=== PATIENT | female | born 1955 | race Caucasian/White ===

== ENCOUNTER → 2019-11-14 10:39 | Outpatient (BNVA) | payer BC, SELFPAY | PROVIDERS: Family Provider Family Medicine; PCP Family Medicine; Referring Provider Family Medicine; Visit Provider Specialist | DX: M25.551 Pain in right hip (principal); M16.11 Unilateral primary osteoarthritis, right hip | CPT/HCPCS: 73502 ==

== ENCOUNTER → 2020-03-10 16:09 | Outpatient (BNVA) | payer MEDICARE, SELFPAY | PROVIDERS: Family Provider Family Medicine; PCP Family Medicine; Visit Provider Specialist | DX: M17.11 Unilateral primary osteoarthritis, right knee (principal) | CPT/HCPCS: 73560; 73565 ==

== ENCOUNTER 2020-05-14 12:22 | Outpatient (CLI) | payer MEDICARE, SELFPAY ==
[2020-05-14 13:22] LABS: Blood Urea Nitrogen 13 mg/dL (8-23); Calcium 8.7 mg/dL (8.5-10.5); Carbon Dioxide 26 mmol/L (22-29); Chloride 101 mmol/L (98-107); Glomerular Filtration Rate 100.3 mL/min (90-130); Glucose 111 mg/dL (65-115); Osmolality Calculated 291 mOsm/kg (285-295); Sodium 140 mmol/L (136-145)
[2020-05-14 14:42] LABS: Anion Gap 16.7 (5-19); Potassium 3.7 mmol/L (3.5-5.1)
== END 2020-05-14 12:23 | disposition home or self-care (01) ==
PROVIDERS: PCP Family Medicine; Visit Provider Internal Medicine Cardiovascular Disease
DX: I10 Essential (primary) hypertension (principal); R06.02 Shortness of breath
CPT/HCPCS: 36415; 80048

== ENCOUNTER 2020-05-26 09:33 | Outpatient (CLI) | payer MEDICARE, SELFPAY ==
[2020-05-26 09:44] VITALS: BMI 32.5
--- NOTE | 2020-05-26 09:46 | ECG_ITS ---
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 Interpretive Statements NAME OF STUDY: LEXISCAN SESTAMIBI STRESS TEST INDICATION: Chest Pain PROCEDURE: At the baseline, the EKG revealed normal sinus rhythm with a poor R wave progression. Possible old septal WI. Nonspecific IVCD. The baseline blood pressure was 164/76 mm Hg with a heart rate of 73 beats/min. Lexiscan was infused over a period of 20 seconds. A total of 0.4 milligrams of Lexiscan was infused. The stress phase was continued for a total of 5 minutes. Heart rate at the end of the stress phase was 94 with a blood pressure was not obtained. The EKG at the peak infusion revealed no significant changes. Sestamibi was injected 20 seconds after the Lexiscan infusion. Blood pressure at the end of the recovery phase was not obtained with a heart rate of 97 per minute. CONCLUSION: 1. No significant EKG changes with the LexiScan infusion 2. No LexiScan induced chest pain or cardiac arrhythmia 3. Normal blood pressure and heart rate response 4. Sestamibi/sestamibi perfusion scan pending; see separate report. Electronically Signed On 05-27-2020 20:46:25 [employer] SUPERVISOR by Jesse Garcia M.D. [email or web address]
--- NOTE | 2020-05-26 09:46 | NMCV_ITS ---
NM rob perf SPECT r/s* [id number] Dorina Roberts Age: 65 Gender: F : 1955 Exam Date: 05/26/2020 09:46 Ordering Phys: Jesse Garcia MD ([email or web address]) Technologist: KAPIL Walls Exam Location: [facility] Indications: CHEST PAIN STRESS TEST Please see separate stress test report in [facility] for full findings IMAGE PROTOCOL Rest/Stress 1 Lexiscan Day Radiopharmaceutical Dose (mCi) Administration Site Administered by Rest: Tc-99m 10.7 IV KAPIL Walls Sestamibi Stress:Tc-99m 32.7 IV KAPIL Gonzalez Sestamibi Rest: 26-May-2020 60 Discovery 630 Stress: 26-May-2020 30 Discovery 630 0.4mg Lexiscan. Supine position only as patient was unable to lay prone. SPECT RESULTS Technical Quality: Excellent Raw Data Analysis: Normal Image Corrections: No attenuation or motion correction applied Summed Stress Score: 0 Summed Rest Score: 1 Summed Difference Score: 0 PERFUSION FINDINGS Small area of decreased uptake in the anteroseptal and apical septal regions. No significant reversibility was noted in these regions. FUNCTIONAL RESULTS (calculated via Gated SPECT) Stress Image LV EF (%): 80 Stress EDV (mL):64 TID: 0.88 Stress ESV (mL):13 FUNCTIONAL FINDINGS: Segmental wall motion analysis revealing no gross wall motion abnormalities IMPRESSIONS 1. Myocardial perfusion imaging revealing a small area of persistent decreased tracer uptake in the anteroseptal and apical septal regions, suggestive of myocardial scarring versus attenuation artifact. 2. Normal LV ejection fraction of 80%. 3. LV wall motion analysis revealing no gross wall motion normalities. 4. Normal LV volume. No significant coronary ischemia, based on the above findings Dr Jesse Garcia MD FACC (Electronically Signed) Final Date: 26 May 2020 15:18 S
[2020-05-26 11:48] VITALS: BP 164/76; PULSE 94
[2020-05-26] MEDS: regadenoson 0.4 Mg/5 ml Syringe IVP (11:48)
== END 2020-05-26 09:34 | disposition home or self-care (01) ==
LOC: CDL 09:35
PROVIDERS: PCP Family Medicine; Visit Provider Internal Medicine Cardiovascular Disease
DX: R07.89 Other chest pain (principal); R94.31 Abnormal electrocardiogram [ECG] [EKG]
CPT/HCPCS: 78452; 93017; A9500; J2785

== ENCOUNTER 2020-07-01 10:02 | Observation (INO) | payer MEDICARE, SELFPAY ==
--- NOTE | 2020-06-24 12:02 | P.ANESASSM_ITS ---
Pre-Anesthetic Assessment Pre-Anesthetic Assessment: Height/Weight: Height 1.63 m Preop Diagnosis: Primary osteoarthritis right knee Proposed Procedure: Operation Date: 07/01/20 07:00 Proposed Procedures p Right Total Knee Arthroplasty 10728 m17.11(Right) - Nini Subramanian MD Familial anesthetic complications: 1993 - difficulty breathing after hernia surgery did fine on a surgery in may Social: Social History: No alcohol and No tobacco Exam: Pre-Anes Outpt Exam: alert, oriented x 3, clear to auscultation bilaterally and regular rate & rhythm Airway: Cervical ROM: WNL MP: 3 Dentition: Chipped (in front) and False (in front) CV/HEM: CV/HEM: HTN Comments: mitral valve prolapse, Stress test 2020 - negative ischemia EF 80% Metabolic: Metabolic: Hyperlipidemia and Thyroid Comments: hypokalemia on potasssium Musc/skel: Comments: R hip needs replacement Anesthetic Plan: ASA status: 3 Anesthesia: Regional (specify below) Other: spinal Risk of > 500 ml blood loss (7ml/kg in children): No PFSH Anesthesia PFSH: Medical History Aftercare following surgery of the genitourinary system The patient status post posterior colporrhaphy 6 weeks ago. Denies any complication. She was counseled regarding no heavy lifting, the use of stool softeners, and diet Chest pain Heart murmur Hypertension Hypokalemia Hypothyroid Hypothyroid MVP (mitral valve prolapse) Patient denies medical problems Denies history of:(diabetes, heart, lung, liver, kidney, bleeding problems, clotting problems, or genital herpes) Pelvic floor weakness 62-year-old female , referring that she has to push up vaginal bulge when she goes to the bathroom to have a bowel movement. Patient was counseled regarding physical findings suggestive of stage II rectocele, possible etiologies. She was counseled regarding treatment modalities, medical/conservative expectant management and surgical management. The patient elected to try expectant management first, she was counseled regarding weight loss, Kegel exercise and pelvic floor physical therapy. Patient refers she still having issues and having to push back the vagina every time she goes to the bathroom and she now elected to have surgery. Counseled regarding surgical management. A TVH and BSO with posterior colporrhaphy, sacrospinous ligament suspension had been recommended. However she refers her boilermaker mechanic only cleared her for the posterior colporrhaphy. The patient was informed of the risks and benefits of an posterior colporrhaphy. Risks included but were not limited to bleeding, infection, and injury to the vagina, bladder, or urethra, and incomplete resolution of symptoms. The patient expressed understanding of the risks involved, all ques tions were answered, and the patient consented to the procedure and signed informed consent. Peripheral edema Rectocele Surgical History History of hernia repair 1993- Performed at [facility] in [place], [place]. History of tonsillectomy History of vaginal surgery Posterior colporrhaphy 06/06/2019- per Dr. Tomlin at [facility] Family History Father Hypertension Diabetes Heart disease Stroke Hyperlipidemia Sister Hypertension Mother Heart disease Breast cancer Family/Other Thyroid condition Heart disease Paternal Aunt Patient denies medical problems Denies family history of: (diabetes, heart, lung, liver, kidney, bleeding problems, clotting problems, or genital herpes) Social History Smoking and tobacco status: never smoked Alcohol intake: never Additional social history: well balanced diet Data Anesthesia Cardiac Studies: No Data to Display
[2020-06-24 12:13] VITALS: BMI 30.9
[2020-06-24 13:07] LABS: Bilirubin Urine Neg (Negative); Blood Urine Neg (Negative); Glucose Urine UA Norm (Normal); Ketones Urine Negative (Negative); Nitrate Urine Negative (Negative); Protein Urine Neg (Negative); Urine Appearance Clear (CLEAR); Urine Color Yellow (Yellow); pH Urine 6.5 (5-7)
[2020-06-24 13:08] LABS: Add Urine Culture? No; Bacteria Urine 1+ /hpf; Leukocyte Esterase Urine Negative (Negative); Mucus Urine 1+ /hpf; RBC Urine 0-4 /hpf (0-2); Urobilinogen Urine 4 mg/dL (Negative); WBC Urine 0-4 /hpf (0-5)
[2020-06-24 13:11] LABS: Basophils # 0.1 10^3/uL (0.0-0.1); Basophils % 0.6 %; Eosinophils # 0.2 10^3/uL (0.0-0.8); Eosinophils % 2.4 %; Hematocrit 38.4 % (37.0-47.0); Hemoglobin 11.6 g/dL (11.5-15.3); Lymphocytes # 1.3 10^3/uL (0.8-4.8); Lymphocytes % 15.8 %; Mean Corpuscular HGB Conc 30.2 g/dL (30.0-36.0); Mean Corpuscular Hemoglobin 26.3 pg (28.0-34.0); Mean Corpuscular Volume 87.1 fL (81-99); Mean Platelet Volume 10.1 fL (7.4-10.4); Monocytes # 0.6 10^3/uL (0.2-0.9); Monocytes % 7.3 %; Neutrophils # 6.15 10^3/uL (1.8-7.7); Neutrophils % 73.7 %; Nucleated Red Blood Cells % 0 %; Platelet Count 358 10^3/cmm (130-400); Red Blood Count 4.41 10^6/uL (4.1-5.3); Red Cell Distribution Width 16.9 % (12.1-15.1); White Blood Count 8.4 10^3/uL (4.0-10.0)
[2020-06-24 13:36] LABS: Alanine Aminotransferase 17 U/L (0-33); Albumin Level 3.6 g/dL (3.5-5.2); Alkaline Phosphatase 122 IU/L (35-105); Anion Gap 18.4 (5-19); Aspartate Amino Transferase 15 U/L (0-32); Blood Urea Nitrogen 9 mg/dL (8-23); Calcium 8.8 mg/dL (8.5-10.5); Carbon Dioxide 26 mmol/L (22-29); Chloride 100 mmol/L (98-107); Globulin 3.8 g/dL (1.3-4.6); Glomerular Filtration Rate 100.3 mL/min (90-130); Glucose 103 mg/dL (65-115); Osmolality Calculated 291 mOsm/kg (285-295); Potassium 3.4 mmol/L (3.5-5.1); Sodium 141 mmol/L (136-145); Total Bilirubin 0.5 mg/dL (0.15-1.2); Total Protein 7.4 g/dL (6.6-8.7)
[2020-07-01] VITALS (19 sets, daily range): BP systolic 87–150; BP diastolic 51–90; PULSE 52–82; RESP 14–18; TEMP 36.2–36.7; O2SAT 91–100
[2020-07-01] MEDS: CELEcoxib 200 mg Capsule 400 MG PO (06:16)
[2020-07-01] MEDS: sodium chloride 0.9% 1,000 ML 30 ML IV (06:17)
--- NOTE | 2020-07-01 07:00 | W.PM.OPSUD ---
Surgery/Procedure H&P Update DATE OF PROCEDURE: July 01, 2020 DATE H&P PERFORMED: 06/18/20 H&P UPDATE INFORMATION: I have reviewed H&P completed within last 30 days and No changes to prior documentation PREOP DIAGNOSIS: Primary osteoarthritis right knee PLANNED PROCEDURE: Operation Date: 07/01/20 07:00 Proposed Procedures p Right Total Knee Arthroplasty 73540 m17.11(Right) - Nini Subramanian MD Related Problem List Diagnoses (1) Primary osteoarthritis of right knee:
--- NOTE | 2020-07-01 07:57 | P.ANESUD_ITS ---
Pre-Anesthetic Update Pre-Anesthetic Assessment: Date of Surgery/Procedure: 07/01/20 Preop Blossom gnosis: Primary osteoarthritis right knee Proposed Procedure: Operation Date: 07/01/20 07:00 Proposed Procedures p Right Total Knee Arthroplasty 94163 m17.11(Right) - Nini Subramanian MD Any changes to Pre-Anesthetic Assessment?: No Last Intake: Intake Last Liquid Date 06/30/20 Last Liquid Time 21:00 Last Solid Date 06/30/20 Last Solid Time 21:00 Vitals: Temperature 98.0 F 07/01/20 05:46 Temperature Source Temporal Artery S can 07/01/20 05:46 Pulse Rate 80 07/01/20 05:46 Pulse Rhythm 07/01/20 05:46 Pulse Strength 3+ Normal 07/01/20 05:46 Respiratory Rate 18 07/01/20 05:46 Blood Pressure 150/90 07/01/20 05:46 Blood Pressure Micaela n 110 07/01/20 05:46 Pulse Oximetry 98 07/01/20 05:46 Oxygen Delivery Me thod 07/01/20 05:46 Exam: Pre-Anes Outpt Exam: alert, oriented x 3, clear to auscultation bilaterally and regular rate & rhythm Cardiac Studies: No Data to Display
--- NOTE | 2020-07-01 07:58 | ANES.PROC ---
Anesthesia Procedures Procedure/Date: 07/01/20 Nerve Block ^: Nerve Block 1: Main Anesthesia: spinal anesthesia block Time Out Performed: Yes Consent: requested by attending/covering physician, risks and benefits reviewed and patient agrees to proceed Anesthesia monitors applied: pulse oximetry, EKG, BP cuff and oxygen Nerve block position: supine Anesthetic Used: ropivicaine 0.5% Amount of anesthesia used (mL): 20 Ultrasound used to: recognize landmarks Nerve Stimulator Used?: No Interscalene/Femoral BLK: 4 stimuplex 21 g needle used for position and inplane approach Injection: neg aspiration of heme Patient Tolerated Procedure: well and no complications Complications: none
[2020-07-01] MEDS: vancomycin 1,000 MG SDV 1000 MG XX (08:20)
[2020-07-01] MEDS: ceFAZolin 1,000 mg SDV 1000 MG IRRIGATION ×2 (08:21)
[2020-07-01] MEDS: vancomycin 1,000 MG in sodium chloride 0.9% 250 ML 250 MG IV (08:31)
--- NOTE | 2020-07-01 10:15 | SUR.PHASEI ---
1015 PALPATED R. PEDAL PULSE, STRONG. CAP REFILL <3 SEC
--- NOTE | 2020-07-01 10:36 | XR_ITS ---
WS: [id number] XR knee RT 1-2V [id number] REASON FOR EXAM: Status post right total knee arthroplasty FINDINGS: There is been total right knee arthroplasty. Prosthetic components are properly positioned and aligne d. No bony abnormality. Soft tissue changes compatible with surgery. XR/XR knee RT 1-2V [id number] IMPRESSION: Total right knee arthroplasty without abnormality.
--- NOTE | 2020-07-01 10:37 | PM.OP ---
Operative Report Date of procedure: July 01, 2020 Pre-op Diagnosis: Primary osteoarthritis right knee Post-op diagnosis: same Post-op Findings: Severe degenerative osteoarthritis right knee Procedure Done: Right total knee arthroplasty Implants: The Haddock total knee system with a size 3 triathlon beaded posterior stabilized femur right, a triathlon titanium tibial component size 2 beaded, a triathlon X3 posterior stabilized tibial bearing insert size 2 x 11 mm and a beaded triathlon titanium asymmetric patella size 29 x 9 mm Pathology: none sent Pathology: Bone, disposed of Surgeon: Nini Subramanian Branch Employment Coordinator: [employer] Anesthesia: Other (Spinal with supplemental regional adductor block, ASA 3) Estimated blood loss (mL): 50 Tourniquet time (min): 119 Tourniquet time: At 250 mmHg IV fluids (mL): 1,500 Urine output (mL): 250 Complications: None Findings: Severe degenerative osteoarthritis with flexion contracture and very thin patella Condition: stable Disposition: PACU (Then to floor under observation status) Brief History: This 65-year-old woman presented with complaints of severe right knee pain. She was unable to perform activities of daily living comfortably. She was unresponsive to conservative measures and wished to proceed with total knee arthroplasty. Risks and complications were discussed with her. Consents were signed preoperatively and questions were answered. The patient wished to proceed understanding the above. Procedure: The patient was brought to the operating theater, and after undergoing adequate spinal anesthesia with supplemental regional block, ASA 3, the right lower extremity was prepped with Dura-Prep and draped in usual fashion following placement of a tourniquet high on the leg. The leg was then draped free. Following prepping and draping, the leg was exsanguinated, and the tourniquet was elevated to 250 mmHg for a total tourniquet time of 119 minutes. Prior to elevation of the tourniquet, but following exposure of the site of surgery, a surgical pause was performed. At the time of the surgical pause, we confirmed the site and side of surgery. Additionally, we confirmed the appropriate and timely administration of preoperative antibiotics, Ancef 2 g and subsequently vancomycin 1 g, as well as transexemic acid 1 g. The availability of equipment was confirmed, and the patient's identity was verbalized as well. Following the surgical pause, an incision was made centering over the patella continuing proximally and distally as necessary to allow access to the knee joint. Dissection continued through skin and soft tissues using a scalpel. Hemostasis was obtained using electrocautery. The skin incision was followed by a median parapatellar arthrotomy. The leg was extended and the patella was everted. Following this, the leg was returned to flexed position. The distal femur was exposed and a drill hole was made in this for placement of the distal femoral jig. The distal femoral jig was set at 5? of valgus. The distal femoral cutting block was then placed in appropriate position, and an mame wing was used to confirm an appropriate amount of distal femur would be resected. The distal femoral resection was accomplished with 10 mm of bone being resected distally secondary to the flexion contracture. After the distal femoral resection had been accomplished, the femur was measured and it measured a size 3. Medial lateral dimension also measured a size 3. A size 3 femoral cutting block was placed in position, and we were then able to accomplish the anterior, posterior and chamfer cuts. This jig was then removed and the notch guide was placed in position. With the notch guide in appropriate position, the notch was excised including resection of the anterior and posterior cruciate ligaments. This notch was to allow for the posterior stabilized femoral component. At this point, the femur was prepared and attention was directed to the proximal tibia. The posterior knee retractor was placed along with medial and lateral retractors. Further resection of the menisci was accomplished as we had better visualization. A complete meniscectomy was performed both medially and laterally with care being taken to protect the popliteus. Retractors were then placed so that the proximal tibia was well visualized. A drill hole was then made in the tibia for placement of the intramedullary guide. This guide was placed so that approximately 2 mm of bone would be resected from the deficient medial tibial plateau. The intramedullary guide was utilized supplemented with an extramedullary guide to assure appropriate alignment for the proximal tibial resection. The proximal tibial jig was then evaluated, pinned in position, and the proximal tibial resection was accomplished without difficulty. The jig was removed and the proximal tibia was measured. It measured a size 2. We then attempted a trial reduction with a size 2 by 9 mm insert. The femoral component was placed in position for the trial reduction, and the knee was placed through range of motion. There was very minimal imbalance between the medial and lateral side, but I did perform a medial release and increased to a size 11 mm insert. There was excellent stability with excellent varus-valgus alignment with appropriate patellar tracking. Extension was noted to be full as well. This was felt to be the appropriate size insert. There was full extension and flexion without lift off and the rotation of the tibia was marked. Alignment was checked from the hip to the ankle, and this was noted to be appropriate as well. Attention was then directed to the patella. The patella was measured with a caliper. It was noted to be quite thin with some areas measuring 13 mm. We resected sufficient patella to leave approximately 12-14 mm of patella remaining. Measurements of the patella then indicated that a size asymmetric 29 mm x 9 mm was the appropriate patellar size. We then placed the jig to drill for the 3 pegs of the press-fit patella, and these drill holes were made without incident. A trial patella was then placed, and the knee was placed through range of motion. The patella was noted to track nicely without evidence of subluxation. The femur was prepared for a press-fit femur by drilling 2 holes for the femoral pegs. All trial components were subsequently removed. The tibial tray was then pinned into position, and we broached the tibia for the stem of the tibial component. Subsequently, 4 drill holes were made for placement of the press-fit tibia. This was accomplished without difficulty. Care was taken to assure appropriate rotation of the tibia as well as appropriate position on the proximal tibia. The tibial tray was completely seated on the proximal tibia. Following broaching, the tibial guide was removed, and all surfaces were copiously irrigated. The surfaces were then dried and a bone plug was placed into the distal femur. Exparel was also injected at this point. The Tritanium tibia was impacted into position. The beaded femur was then impacted into position in a cementless fashion. The tibial insert was placed. The patella was pressed into position with a patellar clamp. The knee was irrigated with 20 mL of Betadine and 500 mL of normal saline, and this was allowed to remain in the knee for 3-4 minutes. The knee was then copiously irrigated and suctioned dry. Attention was then directed to closure. Closure was accomplished with 0 Vicryl in the fascial tissues, 2-0 Monocryl was used in the subcutaneous tissues, and the skin was closed with skin varsha and Exofin. A sterile dressing was then placed consisting of Telfa, 4 x 4's, ABDs, sterile soft roll, and an Pasquale wrap. The patient was returned the Recovery Room in a satisfactory condition. X-rays were obtained there. The patient will be discharged to the floor for postoperative rehabilitation and pain management. She'll be under observation status with plans to discharge home with home health. Associated Problem List Diagnoses (1) Primary osteoarthritis of right knee:
--- NOTE | 2020-07-01 10:39 | ANE.PACU2 ---
Inpatient post-anesthesia follow up: Airway intact: Yes Vital signs: Temperature 97.2 F Pulse Rate 56 Respiratory Rate 17 Blood Pressure 110/57 Pulse Oximetry 96 Oxygen Delivery Me thod Room Air Oxygen Flow Rate 8 Fraction of Inspir ed Oxygen Hydration adequate: Yes Nausea and vomiting: No Pain level: 1 Mental status: Baseline
[2020-07-01] MEDS: chlorhexidine gluconate 0.12% Btl 473 mL 30 ML MUCOUS MEM ×3 (13:03→21:18)
[2020-07-01] MEDS: venlafaxine ER (24HR) 37.5 mg Capsule PO (16:57)
[2020-07-01] MEDS: calcium carbonate 500 mg Chew Tablet 1000 MG PO (16:57)
[2020-07-01] MEDS: sennosides-docusate Tablet 2 TAB PO (16:58)
[2020-07-01] MEDS: gabapentin 300 mg Capsule PO (16:58)
[2020-07-01] MEDS: CELEcoxib 200 mg Capsule PO (16:58)
--- NOTE | 2020-07-01 17:58 | PC.NURSE ---
SHIFT SUMMARY PATIENT HAS DONE WELL SINCE ARRIVING TO THE FLOOR. PATIENT HAS NO COMPLAINTS OF PAIN AT THIS TIME. SURGICAL DRESSING C/D/I. PATIENT DID WELL WITH THERAPY. GOOD URINE OUTPUT. VITALS STABLE. NO COMPLAINTS AT THIS TIME.
[2020-07-02] VITALS (7 sets, daily range): BP systolic 108–140; BP diastolic 64–82; PULSE 66–78; RESP 16–18; TEMP 36.5–36.7; O2SAT 93–96
[2020-07-02 02:35] LABS: Basophils % 0.3 %; Eosinophils # 0.2 10^3/uL (0.0-0.8); Eosinophils % 2.8 %; Hematocrit 32.4 % (37.0-47.0); Lymphocytes % 13.7 %; Mean Corpuscular HGB Conc 30.9 g/dL (30.0-36.0); Mean Corpuscular Hemoglobin 26.4 pg (28.0-34.0); Mean Corpuscular Volume 85.5 fL (81-99); Mean Platelet Volume 10.2 fL (7.4-10.4); Monocytes # 0.6 10^3/uL (0.2-0.9); Monocytes % 8.3 %; Neutrophils # 5.43 10^3/uL (1.8-7.7); Neutrophils % 74.8 %; Nucleated Red Blood Cells % 0 %; Platelet Count 243 10^3/cmm (130-400); Red Blood Count 3.79 10^6/uL (4.1-5.3); White Blood Count 7.3 10^3/uL (4.0-10.0)
[2020-07-02 02:54] LABS: Anion Gap 10.1 (5-19); Blood Urea Nitrogen 14 mg/dL (8-23); Carbon Dioxide 26 mmol/L (22-29); Chloride 105 mmol/L (98-107); Glomerular Filtration Rate 100.3 mL/min (90-130); Glucose 125 mg/dL (65-115); Osmolality Calculated 288 mOsm/kg (285-295); Potassium 3.1 mmol/L (3.5-5.1); Sodium 138 mmol/L (136-145)
[2020-07-02] MEDS: CELEcoxib 200 mg Capsule PO (05:41)
[2020-07-02] MEDS: calcium carbonate 500 mg Chew Tablet 1000 MG PO (09:03)
[2020-07-02] MEDS: atorvastatin 40 mg Tablet 20 MG PO (09:03)
[2020-07-02] MEDS: venlafaxine ER (24HR) 37.5 mg Capsule PO (09:04)
[2020-07-02] MEDS: gabapentin 300 mg Capsule PO (09:04)
[2020-07-02] MEDS: losartan 50 mg Tablet PO (09:04)
[2020-07-02] MEDS: hydroCHLOROthiazide 25 mg Tablet PO (09:04)
[2020-07-02] MEDS: cholecalciferol (vitamin D3) 1,000 unit Tablet 1000 UNIT PO (09:04)
[2020-07-02] MEDS: iron polysaccharide complex 150 mg Capsule PO (09:04)
[2020-07-02] MEDS: mupirocin oint 22 gm 1 APPLIC NASAL (09:05)
[2020-07-02] MEDS: multivitamin therapeutic Tablet 1 TAB PO (09:05)
[2020-07-02] MEDS: sennosides-docusate Tablet 2 TAB PO (09:05)
[2020-07-02] MEDS: levothyroxine 50 mcg Tablet PO (09:05)
[2020-07-02] MEDS: potassium chloride ER 20 mEq Tablet PO (09:06)
[2020-07-02] MEDS: aspirin 325 mg EC Tablet PO (09:06)
[2020-07-02] MEDS: oxyCODONE 5 mg IR Tab/Cap PO (09:14)
[2020-07-02] MEDS: chlorhexidine gluconate 0.12% Btl 473 mL 30 ML MUCOUS MEM (09:18)
[2020-07-02] MEDS: vancomycin 1,000 MG in sodium chloride 0.9% 250 ML 250 MG IV (09:18)
--- NOTE | 2020-07-02 13:12 | PC.SOCIAL ---
PA approved on Celecoxib. Updated provider Dr Subramanian and Tiffany in pharmacy.
--- NOTE | 2020-07-02 17:21 | P.DS_ITS ---
Discharge Providers Date of Admission: 07/01/20 10:02 Date of Discharge: July 02, 2020 Attending Provider at Admission: Nini Subramanian MD Attending Provider at Discharge: Nini Subramanian MD Primary Care Provider: Paul Monk Diagnoses at Discharge Discharge Diagnosis (1) Primary osteoarthritis of right knee: Status: Acute Reason for Visit Reason for Visit: r total knee arthroplasty Brief History: This 65-year-old woman presented with complaints of severe right knee pain. She was unable to perform activities of daily living comfortably. She was unresponsive to conservative measures and wished to proceed with total knee arthroplasty. Risks and complications were discussed with her. Consents were signed preoperatively and questions were answered. The patient wished to proceed understanding the above. Hospital Course Hospital Course This 65-year-old woman underwent the above procedure in the form of a right total knee arthroplasty on the day prior to her discharge. She was brought into the hospital under observation status and monitored overnight for medical issues and for pain management. On the first postoperative day, she worked with physical therapy. She was actually up to the chair, however, the evening following her surgery. She was stable and doing well. Dressings were changed, the wound was benign, and there was no evidence of complication. Her calf was soft and nontender. Physical therapy felt that she was safe to go home. Therefore, she was scheduled for discharge and to follow-up with me in the office. Physical Exam Const: COMMON NORMALS: no acute distress, average body habitus, patient oriented x3 and alert GENERAL APPEARANCE: cooperative and comfortable ORIENTATION/CONSCIOUSNESS: Yes awake HENMT: COMMON NORMALS: normocephalic and atraumatic HEAD & SCALP: normocephalic and atraumatic Eye: GENERAL EYE: appearance normal, both eyes and all related structures Chest: COMMONS NORMALS: normal inspection of the chest Resp: COMMON NORMALS: normal respiratory effort EFFORT & INSPECTION: Yes able to speak in complete sentences and Yes symmetric chest movement Extremity: RIGHT LOWER EXTREMITY: Yes knee joint (Dressings are removed. The patient is tolerating her CPM.) Right knee: Yes inspection (There is no evidence of drainage or infection.), Yes palpation (There is no tenderness to palpation.) and Yes neurovascular exam (Intact distal to the surgical site.) Neuro: COMMON NORMALS: patient oriented x3 SENSORIUM/ORIENTATION: Yes alert Psych: COMMON NORMALS: mental status grossly normal APPEARANCE: Yes grossly normal ATTITUDE: Yes calm and Yes engaged ATTENTION/CONCENTRATION: Yes attention grossly intact Skin: COMMON NORMALS: no rashes or lesions noted GENERAL SKIN EXAM: no rashes or lesions noted Urinary Catheter Management^: F: Cath Placed During This Visit: yes, but has since been removed by the nurse Reason for Continuing Indwelling Catheter: Decision to DC Catheter Urinary Catheter Date of Insertion: 07/01/20 Urinary Catheter Time of Insertion: 07:30 Date Urinary Catheter Removed: 07/02/20 Time Urinary Catheter Discontinued: 04:00 Discharge Data Data Completed and Pending: Completed Studies During Hospitalization Category Date Time Status XR knee RT 1-2V 7 3560 Urgent Exams 07/01/20 10:36 Completed Labs from last 24 hours 07/02/20 07/02/20 02:15 02:15 WBC 7.3 RBC 3.79 L Hgb 10.0 L Hct 32.4 L MCV 85.5 MCH 26.4 L MCHC 30.9 RDW 17.0 H Plt Count 243 MPV 10.2 Neut % (Auto) 74.8 Lymph % (Auto) 13.7 Nelson % (Auto) 8.3 Eos % (Auto) 2.8 Baso % (Auto) 0.3 Neut # (Auto) 5.43 Lymph # (Auto) 1.0 Nelson # (Auto) 0.6 Eos # (Auto) 0.2 Baso # (Auto) 0.0 Nucleated RBC % (a uto) 0 Nucleated RBCs # 0.0 Sodium 138 Potassium 3.1 L Chloride 105 Carbon Dioxide 26 Anion Gap 10.1 BUN 14 Creatinine 0.6 GFR Calculation 100.3 Glucose 125 H Calculated Osmolal ity 288 Calcium 8.0 L Vitals: Last Vital Signs Temp 97.7 F 07/02/20 13:11 Pulse 78 07/02/20 13:11 Resp 18 07/02/20 13:11 BP 140/82 07/02/20 13:11 Pulse Ox 96 07/02/20 13:11 Discharge Plan Discharge Patient Disposition: Home Health Service Condition: Stable Prescriptions: New acetaminophen 500 mg Tablet 1,000 mg PO Q8H 15 Days Qty: 90 RF: 0 aspirin 325 mg Tablet,Delayed Release (Dr/Ec) 325 mg PO DAILY 30 Days Qty: 0 RF: 0 celecoxib 200 mg Capsule 200 mg PO Q12H Qty: 60 RF: 0 oxycodone 5 mg Tablet 5 mg PO Q4H PRN (Reason: Moderate Pain) Qty: 30 RF: 0 Continued gabapentin 300 mg capsule 300 mg PO BID RF: 0 losartan 50 mg tablet 50 mg PO DAILY 30 Days Qty: 30 RF: 5 lovastatin 40 mg tablet extended release 24 hr 40 mg PO DAILY RF: 0 levothyroxine 50 mcg capsule 50 mcg PO DAILY RF: 0 venlafaxine 37.5 mg capsule,extended release 24hr 37.5 mg PO BID RF: 0 garlic Tablet 1 mg PO DAILY RF: 0 potassium chloride 20 mEq tablet extended release 20 meq PO DAILY Qty: 30 RF: 3 ciprofloxacin HCl 500 mg tablet 500 mg PO BID Qty: 14 RF: 0 hydrochlorothiazide 25 mg tablet 25 mg PO DAILY RF: 0 Held aspirin 81 mg tablet,delayed release (DR/EC) 81 mg PO DAILY RF: 0 Hold Instructions: Resume on 07/29/20. You may resume this dose when you have completed 30 days at 325 mg/day. Discharge Orders: Discharge Order (Routine); Ordered 07/02/20 Ordered By: Nini Subramanian Other Ambulatory Orders: DME: Walker (Order) Timeframe: [id number] Location: None Selected Ordered By: Nini Subramanian Referrals: [facility] [Outside] Nini Subramanian MD [Physician] - 07/14/20 9:45 am Discharge Diet: Advance as tolerated and Usual diet Discharge Activity: Increase activity as tolerated, Limit activity as instructed, Use walker/crutches as instructed and As per PT/OT instructions Patient Instructions: Oxycodone, Rapid Release (By mouth), Celecoxib (By mouth), Total Knee Replacement (DC) Activity Restrictions/Additional Instructions: Elevate lower extremity above the level of your heart. Keep ice on your knee. You may weight-bear as tolerated and follow physical therapy instructions for gait training, ambulation, and range of motion as well as strengthening. Discharge Attestations Time Spent in Discharge Care*: greater than 30 min Specific Discharge Activities: educating patient, documenting/other paperwork and evaluating patient/reviewing data Quality Metrics Clinical Quality Measures During this hospital stay, did patient experience: None Coding Level of Care Code Acute Pants Presser for [facility] Fwd Diagnoses Primary osteoarthritis of right knee M17.11
== END 2020-07-02 13:12 | disposition home health service (06) ==
LOC: MEDSURG 10:02
PROVIDERS: Admitting Provider Specialist; PCP Family Medicine; Visit Provider Specialist
PROC: (CPT 27447; principal; 2020-07-01 07:00)
DX: M17.11 Unilateral primary osteoarthritis, right knee (principal); I10 Essential (primary) hypertension; E78.5 Hyperlipidemia, unspecified; E03.9 Hypothyroidism, unspecified; Z83.3 Family history of diabetes mellitus; Z82.49 Family history of ischemic heart disease and other diseases of the circulatory system; Z82.3 Family history of stroke
CPT/HCPCS: 27447; 12345; 36415; 51702; 73560; 80048; 80053; 81001; 85025; 87635; 96361; 96365; 97110; 97116; 97161; 97166; 97535; C1776; C9290; G0378; J0131; J0690; J1885; J2250; J2274; J2405; J2704; J2795; J3010; J3370; J3490; J7030; J7050

== ENCOUNTER 2020-07-02 20:27 | Emergency (ER) | payer MEDICARE, SELFPAY ==
[2020-07-02 20:39] VITALS: BP 105/73; PULSE 90; RESP 16; TEMP 36.5; O2SAT 97; BMI 32.2
--- NOTE | 2020-07-02 21:09 | XR_ITS ---
WS: [id number] XR knee RT 1-2V 00729 REASON FOR EXAM: injury, fall, 1 day post op total knee FINDINGS: Three-part total right knee arthroplasty. Prosthetic components in proper position and alignment, unc hanged to the immediate postoperative study. No bony abnormality. Soft tissue changes compatible with recent surgery. XR/XR knee RT 1-2V 50642 IMPRESSION: Total right knee arthroplasty with no significant abnormality.
[2020-07-02 22:10] VITALS: BP 150/82; PULSE 90; RESP 18; O2SAT 96
--- NOTE | 2020-07-02 22:16 | ED_ITS ---
HPI - Extremity Problem General: Chief complaint: Extremity Injury, Lower Stated complaint: Fall on r.knee/surgery 07/01/worried about damage Time Seen by Provider: 07/02/20 20:50 History of Present Illness: HPI Narrative: Patient is a well-appearing 65-year-old female seen for right knee contusion. She underwent total knee repair only yesterday, and states that she was walking at home with the help of her when she lost her footing and gently fell forward to her knees. Her was holding onto her, thus her knees struck the floor at a much slower rate than they would have otherwise. She complains of mild pain over her incision site at her patella as well as scant blood seen beneath her wound dressing. She has been able to walk since then. She denies increased pain with walking compared to prior to falling. She has no other acute complaints. Review of Systems General: Reports: 10 or more systems reviewed and unremarkable except in HPI and below PFSH ED PFSH: Medical History (Updated 07/02/20 @ 21:50 by Vijay Anglin MD) Aftercare following surgery of the genitourinary system The patient status post posterior colporrhaphy 6 weeks ago. Denies any complication. She was counseled regarding no heavy lifting, the use of stool softeners, and diet Chest pain Heart murmur Hypertension Hypokalemia Hypothyroid Hypothyroid MVP (mitral valve prolapse) Patient denies medical problems Denies history of:(diabetes, heart, lung, liver, kidney, bleeding problems, clotting problems, or genital herpes) Pelvic floor weakness 62-year-old female , referring that she has to push up vaginal bulge when she goes to the bathroom to have a bowel movement. Patient was counseled regarding physical findings suggestive of stage II rectocele, possible etiologies. She was counseled regarding treatment modalities, medical/conservative expectant management and surgical management. The patient elected to try expectant management first, she was counseled regarding weight loss, Kegel exercise and pelvic floor physical t herapy. Patient refers she still having issues and having to push back the vagina every time she goes to the bathroom and she now elected to have surgery. Counseled regarding surgical management. A TVH and BSO with posterior colporrhaphy, sacrospinous ligament suspension had been recommended. However she refers her direct of real estate only cleared her for the posterior colporrhaphy. The patient was informed of the risks and benefits of an posterior colporrhaphy. Risks included but were not limited to bleeding, infection, and injury to the vagina, bladder, or urethra, and incomplete resolution of symptoms. The patient expressed understanding of the risks involved, all questions were answered, and the patient consented to the procedure and signed informed consent. Peripheral edema Rectocele Surgical History (Updated 07/02/20 @ 11:29 by Nini Subramanian MD) History of hernia repair 1993- Performed at [facility] in [place], [place] History of tonsillectomy History of vaginal surgery Posterior colporrhaphy 06/06/2019- per Dr. Tomlin at [facility] Family History Father Hypertension Diabetes Heart disease Stroke Hyperlipidemia Sister Hypertension Mother Heart disease Breast cancer Family/Other Thyroid condition Heart disease Paternal Aunt Patient denies medical problems Denies family history of: (diabetes, heart, lung, liver, kidney, bleeding problems, clotting problems, or genital herpes) Social History Smoking and tobacco status: never smoked Alcohol intake: never Additional social history: well balanced diet Physical Exam Const: COMMON NORMALS: no acute distress, patient oriented x3 and alert HENMT: COMMON NORMALS: normocephalic and atraumatic HEAD & SCALP: normocephalic and atraumatic Eye: COMMON NORMALS: Equal, round and reactive pupils present, EOMs intact bilaterally and no scleral icterus PUPIL: Yes Equal, round and reactive pu pils present Resp: COMMON NORMALS: normal respiratory effort and No retractions Cardio: COMMON NORMALS: regular rate, regular rhythm and No murmurs present (Cardio) RATE: regular rate RHYTHM: regular rhythm GI: COMMON NORMALS: Normal to inspection, nondistended, normoactive bowel stephany nds present, Soft to palpation and non-tender PALPATION: Yes Soft to palpation Extremity: EXTREMITY IMAGE (FRONT): 1. Surgical incision is clean dry and intact. There is a scant amount of blood under the wound dressing, but no other sign of distress or trauma. Neuro: COMMON NORMALS: patient oriented x3 SENSORIUM/ORIENTATION: Yes alert Skin: COMMON NORMALS: no rashes or lesions noted GENERAL SKIN EXAM: no rashes or lesions noted Course Vital Signs: Vital signs: Vital Signs Temperature 97.7 F 07/02/20 20:39 Pulse Rate 90 07/02/20 22:10 Respiratory Rate 18 07/02/20 22:10 Blood Pressure 150/82 07/02/20 22:10 Pulse Oximetry 96 07/02/20 22:10 MDM - Extremity (Nontraumatic) MDM Narrative: Medical decision making narrative: Patient remained hemodynamically stable through ED course. X-ray showed no acute process. I suspect mild contusion to the knee. I do not suspect any trauma warranting further work-up or orthopedic consultation at this time. She is able to ambulate as she did before the fall. She will be discharged in stable condition with follow-up to orthopedics. Imaging Data^: Other Xray: My impression: Multiple views of the right knee show no evidence of periprosthetic fracture or dislocation. Discharge Plan Discharge Patient Disposition: Home Clinical Impression: Contusion of knee, right Condition: Stable Prescriptions: No Action gabapentin 300 mg capsule 300 mg PO BID@0700,1700 RF: 0 lovastatin 40 mg tablet extended release 24 hr 40 mg PO DAILY@1800 RF: 0 levothyroxine 50 mcg capsule 50 mcg PO DAILY@0500 RF: 0 venlafaxine 37.5 mg capsule,extended release 24hr 37.5 mg PO BID@0600,2100 RF: 0 garlic Tablet 1 mg PO DAILY@0700 RF: 0 aspirin 81 mg tablet,delayed release (DR/EC) 81 mg PO DAILY@0700 RF: 0 Hold Instructions: Resume on 07/29/20. You may resume this dose when you have completed 30 days at 325 mg/day. hydrochlorothiazide 25 mg tablet 25 mg PO DAILY@0700 RF: 0 celecoxib 200 mg Capsule 200 mg PO Q12H Qty: 60 RF: 0 oxycodone 5 mg Tablet 5 mg PO Q4H PRN (Reason: Moderate Pain) Qty: 30 RF: 0 losartan 50 mg tablet 50 mg PO DAILY@1800 RF: 0 acetaminophen 500 mg tablet 1,000 mg PO Q8H RF: 0 aspirin 325 mg tablet,delayed release (DR/EC) 325 mg PO DAILY@0700 RF: 0 potassium chloride 20 mEq tablet extended release 20 meq PO DAILY@0600 RF: 0 Discharge Orders: Discharge ED (Routine); Ordered 07/02/20 Ordered By: Vijay Anglin Referrals: Paul Monk [Primary Care Provider] - Nini Subramanian MD [Physician] - (Please follow-up with your orthopedic surgeon as previously scheduled) Discharge Activity: Increase activity as tolerated Activity Restrictions/Additional Instructions: The x-ray of your knee is reassuring. I do not see any evidence of migration of the prosthetic nor fracture of the bone surrounding it. The blood in your dressing is not worrisome and you should not attempt to get it out. Everything underneath the dressing is sterile, and it is best to leave it alone until you follow-up with your orthopedic surgeon. Coding Level of Care Code ED Fitting Room Operator for Chris Zarco
== END 2020-07-02 22:11 | disposition home or self-care (01) ==
PROVIDERS: Emergency Provider Student in an Organized Health Care Education/Training Program; PCP Family Medicine
DX: S80.01XA Contusion of right knee, initial encounter (principal); Z79.82 Long term (current) use of aspirin; I10 Essential (primary) hypertension; W19.XXXA Unspecified fall, initial encounter; Z96.659 Presence of unspecified artificial knee joint; E78.5 Hyperlipidemia, unspecified; E03.9 Hypothyroidism, unspecified; Z83.3 Family history of diabetes mellitus; Z82.49 Family history of ischemic heart disease and other diseases of the circulatory system; Z82.3 Family history of stroke
CPT/HCPCS: 12345; 36415; 73560; 80048; 85025; 97110; 97116; 97166; 97535; 99281; 99282; G0378; J0131; J3370; J7050

== ENCOUNTER → 2020-07-14 09:47 | Outpatient (BNVA) | payer MEDICARE, SELFPAY | PROVIDERS: PCP Family Medicine; Visit Provider Specialist | DX: Z47.1 Aftercare following joint replacement surgery (principal); Z96.651 Presence of right artificial knee joint | CPT/HCPCS: 73560; 73565 ==

== ENCOUNTER → 2020-08-04 13:12 | Outpatient (BNVA) | payer MEDICARE, SELFPAY | PROVIDERS: PCP Family Medicine; Visit Provider Specialist | DX: Z47.1 Aftercare following joint replacement surgery (principal); Z96.651 Presence of right artificial knee joint | CPT/HCPCS: 73560; 73565 ==

== ENCOUNTER 2020-08-13 09:16 | Outpatient (RCR) | payer MEDICARE, SELFPAY | END 2020-08-24 23:59 | disposition home or self-care (01) | LOC: SPT 09:16 | PROVIDERS: PCP Family Medicine; Referring Provider Orthopaedic Surgery; Visit Provider Orthopaedic Surgery | DX: Z47.1 Aftercare following joint replacement surgery (principal); Z96.651 Presence of right artificial knee joint | CPT/HCPCS: 97110; 97161 ==

== ENCOUNTER 2020-08-25 06:00 | Outpatient (RCR) | payer MEDICARE, SELFPAY | END 2020-09-21 23:59 | disposition home or self-care (01) | LOC: SPT 06:00 | PROVIDERS: PCP Family Medicine; Referring Provider Orthopaedic Surgery; Visit Provider Orthopaedic Surgery | DX: Z47.1 Aftercare following joint replacement surgery (principal); Z96.651 Presence of right artificial knee joint | CPT/HCPCS: 97110 ==

== ENCOUNTER 2020-09-22 06:00 | Outpatient (RCR) | payer MEDICARE, SELFPAY | END 2020-10-22 23:59 | disposition home or self-care (01) | LOC: SPT 06:00 | PROVIDERS: PCP Family Medicine; Referring Provider Orthopaedic Surgery; Visit Provider Orthopaedic Surgery | DX: Z47.1 Aftercare following joint replacement surgery (principal); Z96.651 Presence of right artificial knee joint | CPT/HCPCS: 97110; 97116 ==

== ENCOUNTER → 2020-09-24 11:46 | Outpatient (BNVA) | payer MEDICARE, SELFPAY | PROVIDERS: PCP Family Medicine; Visit Provider Specialist | DX: Z47.1 Aftercare following joint replacement surgery (principal); Z96.651 Presence of right artificial knee joint | CPT/HCPCS: 73560; 73565 ==

== ENCOUNTER → 2020-10-22 08:44 | Outpatient (BNVA) | payer MEDICARE, SELFPAY | PROVIDERS: PCP Family Medicine; Visit Provider Specialist | DX: Z96.651 Presence of right artificial knee joint (principal) | CPT/HCPCS: 73560; 73565 ==

== ENCOUNTER 2020-10-23 06:00 | Outpatient (RCR) | payer MEDICARE, SELFPAY | END 2020-11-21 23:59 | disposition home or self-care (01) | LOC: SPT 06:00 | PROVIDERS: PCP Family Medicine; Referring Provider Orthopaedic Surgery; Visit Provider Orthopaedic Surgery | DX: Z47.1 Aftercare following joint replacement surgery (principal); Z96.651 Presence of right artificial knee joint | CPT/HCPCS: 97110 ==

== ENCOUNTER 2020-11-22 06:00 | Outpatient (RCR) | payer MEDICARE, SELFPAY | END 2020-12-22 23:59 | disposition home or self-care (01) | LOC: SPT 06:00 | PROVIDERS: PCP Family Medicine; Referring Provider Orthopaedic Surgery; Visit Provider Orthopaedic Surgery | DX: Z47.1 Aftercare following joint replacement surgery (principal); Z96.651 Presence of right artificial knee joint | CPT/HCPCS: 97110; 97116 ==

== ENCOUNTER 2020-12-23 06:00 | Outpatient (RCR) | payer MEDICARE, SELFPAY | END 2021-01-21 23:59 | disposition home or self-care (01) | LOC: SPT 06:00 | PROVIDERS: PCP Family Medicine; Referring Provider Orthopaedic Surgery; Visit Provider Orthopaedic Surgery | DX: Z47.1 Aftercare following joint replacement surgery (principal); Z96.651 Presence of right artificial knee joint | CPT/HCPCS: 97110 ==

== ENCOUNTER → 2020-12-24 11:31 | Outpatient (BNVA) | payer MEDICARE, SELFPAY | PROVIDERS: PCP Family Medicine; Visit Provider Specialist | DX: Z96.651 Presence of right artificial knee joint (principal); Z48.89 Encounter for other specified surgical aftercare | CPT/HCPCS: 73560; 73565 ==

== ENCOUNTER → 2021-01-14 09:22 | Outpatient (BNVA) | payer MEDICARE, SELFPAY | PROVIDERS: PCP Family Medicine; Visit Provider Specialist | DX: Z01.812 Encounter for preprocedural laboratory examination (principal); Z20.822 Contact with and (suspected) exposure to COVID-19 | CPT/HCPCS: 87635 ==

== ENCOUNTER 2021-01-20 19:45 | Observation (INO) | payer MEDICARE, SELFPAY ==
[2021-01-14 11:44] VITALS: BMI 34.3
--- NOTE | 2021-01-14 12:20 | ANES.PREANE2 ---
Pre-Anesthetic Assessment Pre-Anesthetic Assessment: Height/Weight: Height 1.63 m Weight 90.718 kg Preop Diagnosis: Left knee degenerative osteoarthritis Proposed Procedure: Operation Date: 01/20/21 07:00 Proposed Procedures p Left Total Knee Arthroplasty 02974 M17.10(Left) - Nini Subramanian MD Familial anesthetic complications: 1993 - difficulty breathing after hernia surgery did fine on a surgery in may Social: Social History: No alcohol and No tobacco Exam: Pre-Anes Outpt Exam: alert, oriented x 3, clear to auscultation bilaterally and regular rate & rhythm Airway: Cervical ROM: WNL MP: 3 Dentition: Full CV/HEM: CV/HEM: Angina (Stable) and HTN Comments: mitral valve prolapse, Stress test 2020 - negative ischemia EF 80%1 Metabolic: Metabolic: Hyperlipidemia and Thyroid Anesthetic Plan: ASA status: 3 Anesthesia: Regional (specify below) (spinal and adductor) Risk of > 500 ml blood loss (7ml/kg in children): Yes, adequate IV access and fluids planned PFSH Anesthesia PFSH: Medical History Aftercare following surgery of the genitourinary system The patient status post posterior colporrhaphy 6 weeks ago. Denies any complication. She was counseled regarding no heavy lifting, the use of stool softeners, and diet Chest pain Heart murmur Hypertension Hypokalemia Hypothyroid Hypothyroid MVP (mitral valve prolapse) Patient denies medical problems Denies history of:(diabetes, heart, lung, liver, kidney, bleeding problems, clotting problems, or genital herpes) Pelvic floor weakness 62-year-old female , referring that she has to push up vaginal bulge when she goes to the bathroom to have a bowel movement. Patient was counseled regarding physical findings suggestive of stage II rectocele, possible etiologies. She was counseled regarding treatment modalities, medical/conservative expectant management and surgical management. The patient elected to try expectant management first, she was counseled regarding weight loss, Kegel exercise and pelvic floor physical therapy. Patient refers she still having issues and having to push back the vagina every time she goes to the bathroom and she now elected to have surgery. Counseled regarding surgical management. A TVH and BSO with posterior colporrhaphy, sacrospinous ligament suspension had been recommended. However she refers her woodenware assembler only cleared her for the posterior colporrhaphy. The patient was informed of the risks and benefits of an posterior colporrhaphy. Risks included but were not limited to bleeding, infection, and injury to the vagina, bladder, or urethra, and incomplete resolution of symptoms. The patient expressed understanding of the risks involved, all questions were answered, and the patient consented to the procedure and signed informed consent. Peripheral edema Rectocele Surgical History History of hernia repair 1993- Performed at [facility] in [place], [place]. History of tonsillectomy History of vaginal surgery Posterior colporrhaphy 06/06/2019- per Dr. Tomlin at [facility] Family History Father Hypertension Diabetes Heart disease Stroke Hyperlipidemia Sister Hypertension Mother Heart disease Breast cancer Family/Other Thyroid condition Heart disease Paternal Aunt Patient denies medical problems Denies family history of: (diabetes, heart, lung, liver, kidney, bleeding problems, clotting problems, or genital herpes) Social History Smoking and tobacco status: never smoked Alcohol intake: never Additional social history: well balanced diet Data Anesthesia Cardiac Studies: No Data to Display
[2021-01-14 12:33] LABS: Basophils # 0.1 10^3/uL (0.0-0.1); Basophils % 0.5 %; Eosinophils # 0.2 10^3/uL (0.0-0.8); Eosinophils % 1.4 %; Hematocrit 39.2 % (37.0-47.0); Lymphocytes # 1.2 10^3/uL (0.8-4.8); Lymphocytes % 11.9 %; Mean Corpuscular HGB Conc 30.6 g/dL (30.0-36.0); Mean Corpuscular Hemoglobin 25.7 pg (28.0-34.0); Mean Corpuscular Volume 83.9 fL (81-99); Monocytes # 0.7 10^3/uL (0.2-0.9); Monocytes % 6.6 %; Neutrophils # 8.22 10^3/uL (1.8-7.7); Neutrophils % 79.3 %; Nucleated Red Blood Cells % 0 %; Platelet Count 320 10^3/cmm (130-400); Red Blood Count 4.67 10^6/uL (4.1-5.3); Red Cell Distribution Width 17.3 % (12.1-15.1); White Blood Count 10.4 10^3/uL (4.0-10.0)
[2021-01-14 12:47] LABS: Add Urine Microscopic? YES; Bilirubin Urine Neg (Negative); Blood Urine 2+ (Negative); Glucose Urine UA Norm (Normal); Ketones Urine Negative (Negative); Leukocyte Esterase Urine Negative (Negative); Nitrate Urine Negative (Negative); Protein Urine Neg (Negative); RBC Urine 0-4 /hpf (0-2); Urine Appearance Hazy (CLEAR); Urine Color Yellow (Yellow); Urobilinogen Urine Norm (Negative); pH Urine 5 (5-7)
[2021-01-14 12:48] LABS: Add Urine Culture? No; Bacteria Urine 1+ /hpf
[2021-01-14 12:54] LABS: Alanine Aminotransferase 11 U/L (0-33); Albumin Level 3.8 g/dL (3.5-5.2); Alkaline Phosphatase 113 IU/L (35-105); Aspartate Amino Transferase 14 U/L (0-32); Blood Urea Nitrogen 13 mg/dL (8-23); Calcium 8.7 mg/dL (8.5-10.5); Carbon Dioxide 28 mmol/L (22-29); Chloride 99 mmol/L (98-107); Globulin 3.6 g/dL (1.3-4.6); Glucose 118 mg/dL (65-115); Osmolality Calculated 283 mOsm/kg (285-295); Sodium 136 mmol/L (136-145); Total Bilirubin 0.9 mg/dL (0.15-1.2); Total Protein 7.4 g/dL (6.6-8.7)
[2021-01-20] VITALS (10 sets, daily range): BP systolic 118–154; BP diastolic 66–114; PULSE 54–98; RESP 16–20; TEMP 36.5–37; O2SAT 95–98
[2021-01-20] MEDS: acetaminophen 1,000 MG/100 ML PIGGYBACK 400 MG IV ×2 (13:40→23:47)
[2021-01-20] MEDS: sodium chloride 0.9% 1,000 ML 30 ML IV (13:40)
[2021-01-20] MEDS: CELEcoxib 200 mg Capsule 400 MG PO (13:40)
--- NOTE | 2021-01-20 13:45 | W.PM.OPSUD ---
Surgery/Procedure H&P Update DATE OF PROCEDURE: January 20, 2021 DATE H&P PERFORMED: 01/07/21 H&P UPDATE INFORMATION: I have reviewed H&P completed within last 30 days, I have examined patient prior to procedure, No changes to prior documentation and H&P is in [facility] EMR on date indicated PREOP DIAGNOSIS: Left knee degenerative osteoarthritis PLANNED PROCEDURE: Operation Date: 01/20/21 14:15 Proposed Procedures p Left Total Knee Arthroplasty 69277 M17.10(Left) - Nini Subramanian MD Related Problem List Diagnoses (1) Primary osteoarthritis of left knee:
--- NOTE | 2021-01-20 15:24 | P.ANESUD_ITS ---
Pre-Anesthetic Update Pre-Anesthetic Assessment: Date of Surgery/Procedure: 01/20/21 Preop Blossom gnosis: Left knee degenerative osteoarthritis Proposed Procedure: Operation Date: 01/20/21 14:15 Proposed Procedures p Left Total Knee Arthroplasty 27731 M17.10(Left) - Nini Subramanian MD Any changes to Pre-Anesthetic Assessment?: No Last Intake: Intake Last Liquid Date 01/19/21 Last Liquid Time 23:00 Last Solid Date 01/19/21 Last Solid Time 23:00 Vitals: Temperature 97.8 F 01/20/21 13:17 Temperature Source Temporal Artery S can 01/20/21 13:17 Pulse Rate 98 01/20/21 13:17 Respiratory Rate 18 01/20/21 13:17 Blood Pressure 154/114 01/20/21 13:17 Blood Pressure Micaela n 127 01/20/21 13:17 Pulse Oximetry 97 01/20/21 13:17 Oxygen Delivery Me thod 01/20/21 13:17 Exam: Pre-Anes Outpt Exam: alert, oriented x 3, clear to auscultation bilaterally and regular rate & rhythm Cardiac Studies: No Data to Display
[2021-01-20] MEDS: vancomycin 1,000 MG in sodium chloride 0.9% 250 ML 250 MG IV (18:00)
[2021-01-20] MEDS: vancomycin 1,000 MG SDV 1000 MG (18:24)
[2021-01-20] MEDS: ceFAZolin 1,000 mg SDV 1000 MG (19:36)
--- NOTE | 2021-01-20 19:41 | SUR.OPER ---
FAMILY NOTIFIED OF SURGICAL START.
--- NOTE | 2021-01-20 22:04 | P.OP_ITS ---
Operative Report Date of procedure: January 20, 2021 Pre-op Diagnosis: Left knee degenerative osteoarthritis with flexion contracture Post-op diagnosis: same Post-op Findings: Severe degenerative osteoarthritis with flexion contracture left knee Procedure Done: Left total knee arthroplasty Implants: The [place] total knee system with a size 3 triathlon beaded posterior stabilized femur left, a triathlon titanium tibial component size 2 beaded, a triathlon X3 posterior stabilized tibial bearing insert size 2 x 11 mm and a beaded triathlon titanium asymmetric patella size 29 x 9 mm Specimens removed/disposition: Bone, disposed of Pathology: none sent Surgeon: Nini Subramanian 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 She was unable to perform activities of daily living comfortably. Both she and her therapist felt that this left knee was interfering with her ability to rehabilitate her right knee completely. She is status post right total knee arthroplasty as well. She was unresponsive to conservative measures and wished to proceed with total knee arthroplasty. Risks and complications were discussed with her. Consents were signed preoperatively and questions were answered. The patient wished to proceed understanding the above. Procedure: The patient was brought to the operating theater, and after undergoing adequate spinal anesthesia with supplemental regional block, ASA 3, the left lower extremity was prepped with Dura-Prep and draped in usual fashion following placement of a tourniquet high on the leg. The leg was then draped free. Following prepping and draping, the leg was exsanguinated, and the tourniquet was elevated to 250 mmHg for a total tourniquet time of 122 minutes. Prior to elevation of the tourniquet, but following exposure of the site of surgery, a surgical pause was performed. At the time of the surgical pause, we confirmed the site and side of surgery. Additionally, we confirmed the appropriate and timely administration of preoperative antibiotics, vancomycin 1 g, as well as transexemic acid 1 g. The availability of equipment was confirmed, and the patient's identity was verbalized as well. Following the surgical pause, an incision was made centering over the patella continuing proximally and distally as necessary to allow access to the knee joint. Dissection continued through skin and soft tissues using a scalpel. Hemostasis was obtained using electrocautery. The skin incision was followed by a median parapatellar arthrotomy. The leg was extended and the patella was everted. Following this, the leg was returned to flexed position. The distal femur was exposed and a drill hole was made in this for placement of the distal femoral jig. The distal femoral jig was set at 5? of valgus. The distal femoral cutting block was then placed in appropriate position, and an mame wing was used to confirm an appropriate amount of distal femur would be resected. The distal femoral resection was accomplished with 10 mm of bone being resected distally secondary to the flexion contracture. After the distal femoral resection had been accomplished, the femur was measured and it measured a size 3. Medial lateral dimension also measured a size 3. A size 3 femoral cutting block was placed in position, and we were then able to accomplish the anterior, posterior and chamfer cuts. This jig was then removed and the notch guide was placed in position. With the notch guide in appropriate position, the notch was excised including resection of the anterior and posterior cruciate ligaments. This notch was to allow for the posterior stabilized femoral component. At this point, the femur was prepared and attention was directed to the proximal tibia. The posterior knee retractor was placed along with medial and lateral retractors. Further resection of the menisci was accomplished as we had better visualization. A complete meniscectomy was performed both medially and laterally with care being taken to protect the popliteus. Retractors were then placed so that the proximal tibia was well visualized. A drill hole was then made in the tibia for placement of the intramedullary guide. This guide was placed so that approximately 2 mm of bone would be resected from the deficient medial tibial plateau. The intramedullary guide was utilized supplemented with an extramedullary guide to assure appropriate alignment for the proximal tibial resection. The proximal tibial jig was then evaluated, pinned in position, and the proximal tibial resection was accomplished without difficulty. Circumferential osteophytes were removed from the tibia. The jig was removed, and the proximal tibia was measured. It measured a size 2. We then attempted a trial reduction with a size 2 by 9 mm insert. The femoral component was placed in position for the trial reduction, and the knee was placed through range of motion. There was very minimal imbalance between the medial and lateral side, but I did perform a medial release and increased to a size 11 mm insert. There was excellent stability with excellent varus-valgus alignment with appropriate patellar tracking. Extension was noted to be full as well. This was felt to be the appropriate size insert. There was full extension and flexion without lift off and the rotation of the tibia was marked. Alignment was checked from the hip to the ankle, and this was noted to be appropriate as well. Attention was then directed to the patella. The patella was measured with a caliper. It was noted to be quite thin with some areas measuring 16 mm. We resected sufficient patella to leave approximately 12-14 mm of patella remaining. Measurements of the patella then indicated that a size asymmetric 29 mm x 9 mm was the appropriate patellar size. We then placed the jig to drill for the 3 pegs of the press-fit patella, and these drill holes were made without incident. A trial patella was then placed, and the knee was placed through range of motion. The patella was noted to track nicely without evidence of subluxation. The femur was prepared for a press-fit femur by drilling 2 holes for the femoral pegs. All trial components were subsequently removed. The tibial tray was then pinned into position, and we broached the tibia for the stem of the tibial component. Subsequently, 4 drill holes were made for placement of the press-fit tibia. This was accomplished without difficulty. Care was taken to assure appropriate rotation of the tibia as well as appropriate position on the proximal tibia. The tibial tray was completely seated on the proximal tibia. Following broaching, the tibial guide was removed, and all surfaces were copiously irrigated. The surfaces were then dried and a bone plug was placed into the distal femur. Exparel was also injected at this point. The Tritanium tibia was impacted into position. The beaded femur was then impacted into position in a cementless fashion. The tibial insert was placed. The patella was pressed into position with a patellar clamp. The knee was irrigated with 20 mL of Betadine and 500 mL of normal saline, and this was allowed to remain in the knee for 3-4 minutes. The knee was then copiously irrigated and suctioned dry. Attention was then directed to closure. Closure was accomplished with 0 Vicryl in the fascial tissues, 2-0 Monocryl was used in the subcutaneous tissues, and the skin was closed with skin varsha and Dermabond with Prineo. A sterile dressing was then placed consisting of Opsite, 4 x 4's, ABDs, sterile soft roll, and an Pasquale wrap. The patient was returned the Recovery Room in a satisfactory condition. X-rays were obtained there. The patient will be discharged to the floor for postoperative rehabilitation and pain management. She'll be under observation status with plans to discharge home with home health. Associated Problem List Diagnoses (1) Primary osteoarthritis of left knee:
--- NOTE | 2021-01-20 22:09 | P.PCN_ITS ---
Documented by User: Trenton Otero CRNA 01/20/21 22:09 PACU note PACU note: VSS, Good respiratory effort, report to [facility] TECHNICIAN Post-Anesthesia Exam: awake
[2021-01-20] MEDS: fentaNYL 50 mcg/mL INJ 2mL IVP (22:12)
--- NOTE | 2021-01-20 22:14 | XR_ITS ---
WS: [id number] Left knee, 2 views, 01/20/2021 Clinical Data: Status post left total knee arthroplasty Comparison: AP left knee, 12/24/2020. Findings: A left knee arthroplasty is in good position. There is postoperative air in the joint space. There ar e anterior surgical varsha in the subcutaneous tissue. XR/XR knee LT 3V* [id number] Impression: Left knee arthroplasty. Kellgren-Sameer Classification: NA
[2021-01-20] MEDS: CELEcoxib 200 mg Capsule PO (23:47)
[2021-01-21] VITALS (8 sets, daily range): BP systolic 131–150; BP diastolic 65–78; PULSE 68–76; RESP 13–20; TEMP 36.7–37.1; O2SAT 96–98
[2021-01-21] MEDS: vancomycin 1,000 MG in sodium chloride 0.9% 250 ML 250 MG IV (00:51)
[2021-01-21] MEDS: oxyCODONE 5 mg IR Tab/Cap PO ×3 (01:51→12:56)
[2021-01-21 02:42] LABS: Basophils # 0.1 10^3/uL (0.0-0.1); Basophils % 0.4 %; Eosinophils # 0.1 10^3/uL (0.0-0.8); Hematocrit 36.1 % (37.0-47.0); Hemoglobin 10.5 g/dL (11.5-15.3); Lymphocytes # 1.1 10^3/uL (0.8-4.8); Lymphocytes % 9.4 %; Mean Corpuscular HGB Conc 29.1 g/dL (30.0-36.0); Mean Corpuscular Hemoglobin 25.6 pg (28.0-34.0); Mean Platelet Volume 9.9 fL (7.4-10.4); Monocytes # 0.8 10^3/uL (0.2-0.9); Monocytes % 7.1 %; Neutrophils # 9.47 10^3/uL (1.8-7.7); Neutrophils % 81.7 %; Nucleated Red Blood Cells % 0 %; Platelet Count 242 10^3/cmm (130-400); Red Cell Distribution Width 17.8 % (12.1-15.1); White Blood Count 11.6 10^3/uL (4.0-10.0)
[2021-01-21 02:47] LABS: Anion Gap 12.2 (5-19); Blood Urea Nitrogen 13 mg/dL (8-23); Calcium 7.7 mg/dL (8.5-10.5); Carbon Dioxide 22 mmol/L (22-29); Chloride 108 mmol/L (98-107); Glucose 118 mg/dL (65-115); Osmolality Calculated 289 mOsm/kg (285-295); Potassium 3.2 mmol/L (3.5-5.1); Sodium 139 mmol/L (136-145)
[2021-01-21] MEDS: levothyroxine 50 mcg Tablet PO (05:19)
[2021-01-21] MEDS: hydroCHLOROthiazide 25 mg Tablet PO (06:05)
[2021-01-21] MEDS: gabapentin 300 mg Capsule PO (06:05)
[2021-01-21] MEDS: potassium chloride ER 20 mEq Tablet PO (06:05)
--- NOTE | 2021-01-21 06:27 | ANE.PACU2 ---
Inpatient post-anesthesia follow up: Airway intact: Yes Vital signs: Temperature 98.6 F Pulse Rate 76 Respiratory Rate 18 Blood Pressure 136/78 Pulse Oximetry 98 Oxygen Delivery Me thod Room Air Oxygen Flow Rate Fraction of Inspir ed Oxygen Hydration adequate: Yes Nausea and vomiting: No Pain level: 1 Mental status: Baseline
[2021-01-21] MEDS: cholecalciferol (vitamin D3) 1,000 unit Tablet 1000 UNIT PO (09:27)
[2021-01-21] MEDS: mupirocin oint 22 gm 1 APPLIC NASAL (09:27)
[2021-01-21] MEDS: multivitamin therapeutic Tablet 1 TAB PO (09:27)
[2021-01-21] MEDS: aspirin 325 mg EC Tablet PO (09:27)
[2021-01-21] MEDS: sennosides-docusate Tablet 2 TAB PO (09:27)
[2021-01-21] MEDS: iron polysaccharide complex 150 mg Capsule PO (09:27)
[2021-01-21] MEDS: chlorhexidine gluconate 0.12% Btl 473 mL 30 ML MUCOUS MEM ×2 (09:28→12:56)
[2021-01-21] MEDS: calcium carbonate 500 mg Chew Tablet 1000 MG PO (09:28)
[2021-01-21] MEDS: acetaminophen 1,000 MG/100 ML PIGGYBACK 400 MG IV (09:31)
--- NOTE | 2021-01-21 09:54 | PC.CHAP ---
Pastoral Care Encounter/Spiritual Assessment Type of Contact [] Declined hydraulic modeling engineer visit [] Patient/Family/Request visit [] Outpatient visit [] Follow-up visit [] Physician referral [] Code/Alert [xx] Routine visit [] Staff referral [] Actively dying [] Patient sleeping [] Family support [] [] Out of room [] Palliative care [] [x] Receiving care in room [] Pre-surgical visit [] Trauma [] Long length of stay [] ICU visit [] Other: Relational/Emotional Strength [] Patient feels connected with others/family/visitors/staff [] Distress [] Loneliness/isolation [] Abandonment Spirituality of Patient [] Person of Jyotsna [] Attends Orthodox of their Jyotsna [] Believes in Prayer [] Reads Bible or Rastafari materials [] There are Spiritual issues to be addressed Photo Machine Operator Interventions [] Prayer [] Active listening [] Non-anxious presence [] Spiritual/emotional support [] Crisis/trauma care [] Spiritual counseling [] Bereavement support [] Provided bereavement packet [] Provided Bible/devotional materials [] Provided toy/stuffed animal, coloring book to patient or family member [] Provided Communion [] Anointing/[place] [] Salvation [] Completed spiritual assessment [] Other: Impact on Illness or Injury [] Angry [] Fearful [] Anxious [] Often cries [] Exhaustion [] Unable to work [] Unable to attend samaritan [] Unable to walk/stand [] Unable to read [] Unable to drive [] Unable to eat/drink [] Unable to sleep [] Unable to be with family [] Patient intubated [] Other: Summary Time spent with patient
[2021-01-21] MEDS: CELEcoxib 200 mg Capsule PO (12:56)
--- NOTE | 2021-01-21 13:31 | PM.DCS ---
Discharge Providers Date of Admission: 01/20/21 19:45 Date of Discharge: January 21, 2021 Attending Provider at Admission: Nini Subramanian MD Attending Provider at Discharge: Nini Subramanian MD Primary Care Provider: Paul Monk Diagnoses at Discharge Discharge Diagnosis (1) Primary osteoarthritis of left knee: Status: Resolved (2) History of total left knee replacement: Status: Acute Permanent problem details: The [place] total knee system with a size 3 triathlon beaded posterior stabilized femur left, a triathlon titanium tibial component size 2 beaded, a triathlon X3 posterior stabilized tibial bearing insert size 2 x 11 mm and a beaded triathlon titanium asymmetric patella size 29 x 9 mm Reason for Visit Reason for Visit: Left Total Knee Arthroplasty Hospital Course Hospital Course This 66-year-old woman presented yesterday for left total knee arthroplasty. She had an uneventful procedure and was brought into the hospital for overnight observation following the procedure. Today, her pain is well controlled. She has no evidence of DVT. There is no drainage from her wound. There is no evidence of infection. She is neurologically intact. Arrangements are being made for home health. The patient is status post bilateral total knee arthroplasties at this point, and she understands outpatient rehabilitation. We are working on home health for her as well. Physical Exam Const: COMMON NORMALS: no acute distress, average body habitus, patient oriented x3 and alert GENERAL APPEARANCE: cooperative and comfortable ORIENTATION/CONSCIOUSNESS: Yes awake HENMT: COMMON NORMALS: normocephalic and atraumatic HEAD & SCALP: normocephalic and atraumatic Eye: GENERAL EYE: appearance normal, both eyes and all related structures Chest: COMMONS NORMALS: normal inspection of the chest Resp: COMMON NORMALS: normal respiratory effort EFFORT & INSPECTION: Yes able to speak in complete sentences and Yes symmetric chest movement Extremity: LEFT LOWER EXTREMITY: Yes knee joint Left knee: Yes inspection (Minimal swelling and discoloration), Yes palpation (Minimal tenderness to palpation), Yes ROM (Not evaluated), Yes neurovascular exam (Intact with no evidence of DVT) and Yes other (Able to straight leg raise) Neuro: COMMON NORMALS: patient oriented x3 SENSORIUM/ORIENTATION: Yes alert Psych: COMMON NORMALS: mental status grossly normal APPEARANCE: Yes grossly normal ATTITUDE: Yes calm and Yes engaged ATTENTION/CONCENTRATION: Yes attention grossly intact Skin: COMMON NORMALS: no rashes or lesions noted GENERAL SKIN EXAM: no rashes or lesions noted Urinary Catheter Management^: Boles: Cath Placed During This Visit: yes, but has since been removed by the nurse Reason for Continuing Indwelling Catheter: Decision to DC Catheter Urinary Catheter Date of Insertion: 01/20/21 Urinary Catheter Time of Insertion: 18:35 Date Urinary Catheter Removed: 01/21/21 Time Urinary Catheter Discontinued: 06:21 Discharge Data Data Completed and Pending: Completed Studies During Hospitalization Category Date Time Status XR knee LT 3V* [id number] Urgent Exams 01/20/21 22:14 Completed Labs from last 24 hours 01/21/21 01/21/21 01:54 01:54 WBC 11.6 H RBC 4.10 Hgb 10.5 L Hct 36.1 L MCV 88.0 MCH 25.6 L MCHC 29.1 L RDW 17.8 H Plt Count 242 MPV 9.9 Neut % (Auto) 81.7 Lymph % (Auto) 9.4 [place] % (Auto) 7.1 Eos % (Auto) 1.0 Baso % (Auto) 0.4 Neut # (Auto) 9.47 H Lymph # (Auto) 1.1 [place] # (Auto) 0.8 Eos # (Auto) 0.1 Baso # (Auto) 0.1 Nucleated RBC % (a uto) 0 Nucleated RBCs # 0.0 Sodium 139 Potassium 3.2 L Chloride 108 H Carbon Dioxide 22 Anion Gap 12.2 BUN 13 Creatinine 0.6 GFR Calculation 100.0 Glucose 118 H Calculated Osmolal ity 289 Calcium 7.7 L Vitals: Last Vital Signs Temp 98.6 F 01/21/21 05:45 Pulse 76 01/21/21 05:45 Resp 13 01/21/21 12:56 BP 136/78 01/21/21 05:45 Pulse Ox 98 01/21/21 12:56 Discharge Plan Discharge Patient Disposition: Home Health Service Condition: Stable Prescriptions: New aspirin 325 mg Tablet,Delayed Release (Dr/Ec) 325 mg PO DAILY 30 Days Qty: 0 RF: 0 celecoxib 200 mg Capsule 200 mg PO Q12H 30 Days Qty: 60 RF: 0 oxycodone 5 mg Tablet 5 mg PO Q4H PRN (Reason: Moderate Pain) Qty: 30 RF: 0 Continued gabapentin 300 mg capsule 300 mg PO BID@0700,1700 RF: 0 lovastatin 40 mg tablet extended release 24 hr 40 mg PO DAILY@1800 RF: 0 levothyroxine 50 mcg capsule 50 mcg PO DAILY@0500 RF: 0 garlic Tablet 1 mg PO DAILY@0700 RF: 0 potassium chloride 20 mEq tablet extended release 20 meq PO DAILY@0600 Qty: 90 RF: 1 hydrochlorothiazide 25 mg tablet 25 mg PO DAILY@0700 RF: 0 losartan 50 mg tablet 50 mg PO DAILY@1800 RF: 0 acetaminophen 500 mg tablet 1,000 mg PO Q8H RF: 0 Held aspirin 81 mg Tablet 81 mg PO DAILY RF: 0 Hold Instructions: Resume on 02/18/21. Discharge Orders: Discharge Order (Routine); Ordered 01/21/21 Ordered By: Nini Subramanian Referrals: Nini Subramanian MD [Physician] - 02/04/21 2:45 pm Discharge Diet: Advance as tolerated and Usual diet Discharge Activity: Increase activity as tolerated, Limit activity as instructed, Use walker/crutches as instructed and As per PT/OT instructions Patient Instructions: Aspirin (By mouth), Oxycodone, Rapid Release (By mouth), Celecoxib (By mouth), Total Knee Replacement (DC), Opioid Safety Activity Restrictions/Additional Instructions: Ice and elevation to left lower extremity. Weightbearing, range of motion, and strengthening per physical therapy. Discharge Attestations Time Spent in Discharge Care*: greater than 30 min Quality Metrics Clinical Quality Measures During this hospital stay, did patient experience: None Coding Level of Care Code Acute Chg FW DC note Diagnoses Primary osteoarthritis of left knee M17.12 History of total left knee replacement Z96.652
--- NOTE | 2021-01-21 16:38 | PC.NURSE ---
PT HAS DONE WELL FOR ME TODAY. PT HAS HAD MINIMAL COMPLAINTS OF PAIN. PT DOES OKAY WITH WALKER AND ONE ASSIST. PT WILL DISCHARGE TODAY PER SURGEON. PTS MEDICATIONS WERE SENT TO PHARMACY PER PT REQUEST. DISCHARGE PAPERWORK WAS GONE OVER WITH PT. ALL QUESTIONS ANSWERED. IV WAS REMOVED. PT TOLERATED THAT WELL. CATHETER TIP INTACT. PT WAS SAFELY WHEELED OUT BY THIS NURSE AT 1630.
== END 2021-01-21 16:50 | disposition home health service (06) ==
LOC: MEDSURG 19:45
PROVIDERS: Admitting Provider Specialist; PCP Family Medicine; Visit Provider Specialist
PROC: (CPT 27447; principal; 2021-01-20 13:55)
DX: M17.12 Unilateral primary osteoarthritis, left knee (principal); E78.5 Hyperlipidemia, unspecified; I10 Essential (primary) hypertension; Z79.82 Long term (current) use of aspirin
CPT/HCPCS: 27447; 36415; 51702; 64447; 73562; 80048; 80053; 81001; 85025; 97161; 97165; 97530; C1776; C9290; G0378; J0690; J2250; J2704; J2795; J3010; J3370; J3490; J7030; J7050

== ENCOUNTER 2021-01-31 10:04 | Emergency (ER) | payer MEDICARE, SELFPAY ==
[2021-01-31 10:09] VITALS: BP 135/74; PULSE 91; RESP 18; TEMP 36.8; O2SAT 97; BMI 34.3
--- NOTE | 2021-01-31 10:09 | XRR_ITS ---
PROCEDURE INFORMATION: Exam: XR Right Hip Exam date and time: 01/31/2021 10:09 AM Age: 66 years old Clinical indication: Hip pain; Right hip; Additional info: Pain after fall TECHNIQUE: Imaging protocol: XR Right hip. Views: 2 or 3 views hip with pelvis when performed. COMPARISON: CR XR knees AP WB w RT lmt ORTH 12/24/2020 11:37 AM FINDINGS: Bones/joints: Degenerative change with subchondral sclerosis and cyst formation. No acute bony injury or malalignment in the visualized right hip. Soft tissues: Diffuse soft tissue prominence and skin folds. 3 mm calcification inferior to the right ischium. XR/XR hip RT 2-3V wo/w pel* [id number] IMPRESSION: Degenerative change, without acute bony injury in the visualized right hip.
--- NOTE | 2021-01-31 10:09 | XRR_ITS ---
PROCEDURE INFORMATION: Exam: XR Right Knee Exam date and time: 01/31/2021 10:09 AM Age: 66 years old Clinical indication: Pain; Right; Prior surgery; Surgery type: RT knee and left knee; Additional info: Pain after fall TECHNIQUE: Imaging protocol: XR Right knee. Views: 3 views. COMPARISON: CR XR knees AP WB w RT lmt ORTH 12/24/2020 11:37 AM FINDINGS: Bones/joints: Arthroplasty, without acute bony injury or malalignment. Soft tissues: Subcutaneous calcification anterior/medial to the proximal tibia. XR/XR knee RT 3V* [id number] IMPRESSION: Arthroplasty, without acute bony injury or malalignment.
--- NOTE | 2021-01-31 10:10 | ED_ITS ---
HPI - Fall General: Chief Complaint: Extremity Injury, Lower Stated Complaint: LEFT GROIN PAIN Time Seen by Provider: 01/31/21 10:06 History of Present Illness: HPI Narrative: 66-year-old female presents emergency room with complaint of right hip and knee pain. She fell the majority of her pain is her right hip. He requires assist of 1 family members to get back up this occurred last night. She was in bed after that she still is unable to give this morning and called EMS. She relates most of her pain to the right hip. She did have a left knee arthroplasty done proximally 11 to 12 days ago. She denies any other injuries. According to the patient she did not really fall so much is kind of a controlled slide to the ground. MD complaint: fall Onset (ago): hour(s) Fall from: standing Fall witnessed: yes, by family Place fall occurred: home Loss of consciousness: None Prolonged down time: no Context: tripped/slipped and history of frequent falls Location of injury: other (Right hip) Severity: moderate Quality: aching Associated symptoms-after fall: Reports difficulty walking and weakness; Denies abdominal pain, chest pain, confusion, headache(s), hematuria, lightheadedness, neck pain, numbness, short of breath or vertigo Review of Systems Const: Denies: fever(s), chills, body aches, change in appetite, fatigue or malaise ENMT: Denies: throat pain, ear or mastoid pain, nasal discharge or nasal congestion Card: Denies: chest pain or lightheadedness Resp: Denies: dyspnea, productive cough or non-productive cough GI: Denies: abdominal pain : Denies: hematuria Musc: Denies: neck pain Skin/Breast: Denies: rash or pruritus Neuro: Reports: difficulty walking; Denies: headache(s), vertigo or confusion PFS ED PFSH: Medical History Aftercare following surgery of the genitourinary system The patient status post posterior colporrhaphy 6 weeks ago. Denies any complication. She was counseled regarding no heavy lifting, the use of stool softeners, and diet Chest pain Heart murmur Hypertension Hypokalemia Hypothyroid Hypothyroid MVP (mitral valve prolapse) Patient denies medical problems Denies history of:(diabetes, heart, lung, liver, kidney, bleeding problems, clotting problems, or genital herpes) Pelvic floor weakness 62-year-old female , referring that she has to push up vaginal bulge when she goes to the bathroom to have a bowel movement. Patient was counseled regarding physical findings suggestive of stage II rectocele, possible etiologies. She was counseled regarding treatment modalities, medical/conservative expectant management and surgical management. The patient elected to try expectant management first, she was counseled regarding weight loss, Kegel exercise and pelvic floor physical therapy. Patient refers she still having issues and having to push back the vagina every time she goes to the bathroom and she now elected to have surgery. Counseled regarding surgical management. A TVH and BSO with posterior colporrhaphy, sacrospinous ligament suspension had been recommended. However she refers her campaign marketing specialist only cleared her for the posterior colporrhaphy. The patient was informed of the risks and benefits of an posterior colporrhaphy. Risks included but were not limited to bleeding, infection, and injury to the vagina, bladder, or urethra, and incomplete resolution of sym ptoms. The patient expressed understanding of the risks involved, all questions were answered, and the patient consented to the procedure and signed informed consent. Peripheral edema Rectocele Surgical History History of hernia repair 1993- Performed at [facility] in [place], [place]. History of tonsillectomy History of vaginal surgery Posterior colporrhaphy 06/06/2019- per Dr. Tomlin at [facility] Family History Father Hypertension Diabetes Heart disease Stroke Hyperlipidemia Sister Hypertension Mother Heart disease Breast cancer Family/Other Thyroid condition Heart disease Paternal Aunt Patient denies medical problems Denies family history of: (diabetes, heart, lung, liver, kidney, bleeding problems, clotting problems, or genital herpes) Social History Smoking and tobacco status: never smoked Alcohol intake: never Additional social history: well balanced diet Physical Exam Const: COMMON NORMALS: no acute distress GENERAL APPEARANCE: cooperative and comfortable ORIENTATION/CONSCIOUSNESS: Yes awake, Yes oriented to person, Yes oriented to place and Yes oriented to time HENMT: COMMON NORMALS: normocephalic, atraumatic, hearing grossly normal bilaterally and external ears normal HEAD & SCALP: normocephalic and atraumatic EXTERNAL EAR: Yes external ears normal Neck/C-Spine: COMMON NORMALS: no JVD Resp: COMMON NORMALS: normal respiratory effort, No retractions, No use of accessory muscles and clear to auscultation bilaterally AUSCULTATION: clear to auscultation bilaterally Cardio: COMMON NORMALS: no JVD, regular rate, regular rhythm and No murmurs present (Cardio) RATE: regular rate RHYTHM: regular rhythm GI: COMMON NORMALS: Soft to palpation and No hepatosplenomegaly present AUSCULTATION: Yes normoactive bowel sounds PALPATION: Yes Soft to palpation, No Tenderness to palpation present (GI), No Guarding due to palpation present (GI) and Yes No hepatosplenomegaly present Extremity: COMMON NORMALS: normal to inspection, capillary refill normal, no clubbing, cyanosis or edema, no calf tenderness and no pedal edema Neuro: SENSORIUM/ORIENTATION: Yes oriented to person, Yes oriented to place and Yes oriented to time Skin: COMMON NORMALS: no rashes or lesions noted GENERAL SKIN EXAM: no rashes or lesions noted Course Vital Signs: Vital signs: Vital Signs Temperature 98.3 F 01/31/21 10:09 Pulse Rate 86 01/31/21 10:18 Respiratory Rate 18 01/31/21 10:09 Blood Pressure 135/74 01/31/21 10:18 Pulse Oximetry 96 01/31/21 10:18 MDM - Fall MDM Narrative: Medical decision making narrative: No acute fracture. Patient is already getting home health and doing PT and colitis is generalized degeneration because of nonuse post surgery. Discussed longterm placement she prefer to continue with her home health and physical therapy there at this point. I did reassess the hip and the knee were able to move without significant pain its mostly just weakness which leads me to believe some of this is muscle atrophy from nonuse. She even moves spontaneously without any difficulty or any pain in the right hip and the right knee x-rays were negative. Discharge Plan Discharge Patient Disposition: Home Clinical Impression: Fall, History of total right knee replacement, History of total left knee replacement Condition: Stable Prescriptions: No Action gabapentin 300 mg capsule 300 mg PO BID@0700,1700 RF: 0 lovastatin 40 mg tablet extended release 24 hr 40 mg PO DAILY@1800 RF: 0 levothyroxine 50 mcg capsule 50 mcg PO DAILY@0500 RF: 0 garlic Tablet 1 mg PO DAILY@0700 RF: 0 potassium chloride 20 mEq tablet extended release 20 meq PO DAILY@0600 Qty: 90 RF: 1 hydrochlorothiazide 25 mg tablet 25 mg PO DAILY@0700 RF: 0 losartan 50 mg tablet 50 mg PO DAILY@1800 RF: 0 acetaminophen 500 mg tablet 1,000 mg PO Q8H RF: 0 aspirin 81 mg Tablet 81 mg PO DAILY RF: 0 Hold Instructions: Resume on 02/18/21. 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
[2021-01-31 10:18] VITALS: BP 135/74; PULSE 86; O2SAT 96
[2021-01-31 11:35] VITALS: BP 157/80; PULSE 88; O2SAT 98
== END 2021-01-31 11:36 | disposition home or self-care (01) ==
LOC: ER 11:34
PROVIDERS: Emergency Provider Family Medicine; PCP Family Medicine
DX: M25.551 Pain in right hip (principal); Z96.653 Presence of artificial knee joint, bilateral; I10 Essential (primary) hypertension
CPT/HCPCS: 73502; 73562; 99282

== ENCOUNTER → 2021-02-04 14:48 | Outpatient (BNVA) | payer MEDICARE, SELFPAY | PROVIDERS: PCP Family Medicine; Visit Provider Specialist | DX: Z47.1 Aftercare following joint replacement surgery (principal); Z96.653 Presence of artificial knee joint, bilateral; M25.462 Effusion, left knee | CPT/HCPCS: 73560; 73565 ==

== ENCOUNTER 2021-02-26 10:26 | Outpatient (RCR) | payer MEDICARE, SELFPAY | END 2021-03-24 23:59 | disposition home or self-care (01) | LOC: SPT 10:26 | PROVIDERS: PCP Family Medicine; Referring Provider Specialist; Visit Provider Specialist | DX: Z47.1 Aftercare following joint replacement surgery (principal); Z96.652 Presence of left artificial knee joint | CPT/HCPCS: 97110; 97116; 97161 ==

== ENCOUNTER 2021-03-25 06:00 | Outpatient (RCR) | payer MEDICARE, SELFPAY | END 2021-04-23 23:59 | disposition home or self-care (01) | LOC: SPT 06:00 | PROVIDERS: PCP Family Medicine; Referring Provider Specialist; Visit Provider Specialist | DX: Z96.652 Presence of left artificial knee joint (principal) | CPT/HCPCS: 73560; 73565; 97032; 97110; 97116 ==

== ENCOUNTER 2021-04-24 06:00 | Outpatient (RCR) | payer MEDICARE, SELFPAY | END 2021-05-24 23:59 | disposition home or self-care (01) | LOC: SPT 06:00 | PROVIDERS: PCP Family Medicine; Visit Provider Specialist | DX: Z47.89 Encounter for other orthopedic aftercare (principal); Z96.652 Presence of left artificial knee joint | CPT/HCPCS: 97110; 97116 ==

== ENCOUNTER 2021-05-25 06:00 | Outpatient (RCR) | payer MEDICARE, SELFPAY | END 2021-06-23 14:48 | disposition home or self-care (01) | LOC: SPT 06:00 | PROVIDERS: PCP Family Medicine; Visit Provider Specialist | DX: Z96.652 Presence of left artificial knee joint (principal) | CPT/HCPCS: 97110; 97116 ==

== ENCOUNTER → 2021-06-01 13:39 | Outpatient (BNVA) | payer MEDICARE, SELFPAY | PROVIDERS: PCP Family Medicine; Visit Provider Specialist | DX: Z47.1 Aftercare following joint replacement surgery (principal); Z96.652 Presence of left artificial knee joint; Z96.651 Presence of right artificial knee joint; M16.11 Unilateral primary osteoarthritis, right hip | CPT/HCPCS: 73502; 73560; 73565 ==

== ENCOUNTER 2021-08-12 10:06 | Outpatient (CLI) | payer MEDICARE, SELFPAY ==
--- NOTE | 2021-08-12 10:14 | MR_ITS ---
WS: [id number] MRI RIGHT HIP NONCONTRAST TECHNIQUE: Axial T1, axial T2 fat sat, coronal T1, coronal STIR, sagittal T2 fat sat, sagittal T1, an d sagittal T2 fat sat, of both hips. CLINICAL INFORMATION: HIP PAIN COMPARISON: None. FINDINGS: Some images degraded by motion artifact. Advanced degenerative arthritis right hip with complete loss of the joint space and mryr-[id number] janie culation worse in the superolateral joint space. Associated subchondral edema and cystic change in th e femoral head and superolateral acetabulum. Normal right femoral neck. No acute fractures. Degenerat gennaro edema extends into the anterior posterior acetabulum and pubic root. Small right joint effusion. Normal pubic rami bilaterally. Moderate degenerative arthritis left hip with joint space narrowing. Normal left femoral neck. No acu te fractures. Normal pubic symphysis. No inguinal lymphadenopathy. Lumbar curve lower lumbar spine. MR/MR hip RT wo con* [id number] IMPRESSION: 1. Advanced osteoarthritis right hip with near-complete/complete loss of joint space and [id number] articulation superolateral joint compartment. Associate d subchondral cystic change and edema. 2. Edema extends into the anterior and posterior acetabulum and adjacent pubic root. Small joint effusion. 3. No acute hip fractures. 4. Moderate degenerative arthritis left hip joint space narrowing. 5. No other significant findings.
== END 2021-08-12 10:07 | disposition home or self-care (01) ==
PROVIDERS: PCP Family Medicine; Visit Provider Specialist
DX: M16.11 Unilateral primary osteoarthritis, right hip (principal); R60.0 Localized edema
CPT/HCPCS: 73721

== ENCOUNTER → 2021-10-05 13:12 | Outpatient (BNVA) | payer MEDICARE, SELFPAY | PROVIDERS: PCP Family Medicine; Visit Provider Specialist | DX: Z47.1 Aftercare following joint replacement surgery (principal); Z96.651 Presence of right artificial knee joint; Z96.652 Presence of left artificial knee joint | CPT/HCPCS: 73560; 73565 ==

== ENCOUNTER → 2022-10-20 10:44 | Outpatient (BNVA) | payer MEDICARE, SELFPAY | PROVIDERS: PCP Family Medicine; Visit Provider Specialist | DX: Z96.651 Presence of right artificial knee joint (principal); Z96.652 Presence of left artificial knee joint; Z47.89 Encounter for other orthopedic aftercare | CPT/HCPCS: 73560; 73565; 99213 ==

== ENCOUNTER → 2023-01-11 10:43 | Outpatient (BNVA) | payer MEDICARE, SELFPAY | PROVIDERS: PCP Family Medicine; Visit Provider Surgery | DX: K80.20 Calculus of gallbladder without cholecystitis without obstruction (principal) | CPT/HCPCS: 99203 ==

== ENCOUNTER → 2023-02-03 16:24 | Outpatient (BNVA) | payer MEDICARE, SELFPAY | PROVIDERS: PCP Family Medicine; Visit Provider Internal Medicine Cardiovascular Disease | DX: R07.9 Chest pain, unspecified (principal); R94.31 Abnormal electrocardiogram [ECG] [EKG]; I34.1 Nonrheumatic mitral (valve) prolapse; I10 Essential (primary) hypertension; R60.9 Edema, unspecified; R78.5 Finding of other psychotropic drug in blood; E11.9 Type 2 diabetes mellitus without complications | CPT/HCPCS: 93005; 99214 ==

== ENCOUNTER 2023-02-28 06:47 | Day surgery (SDC) | payer MEDICARE, SELFPAY ==
[2023-02-25 09:39] VITALS: BMI 31.2
[2023-02-28] VITALS (7 sets, daily range): BP systolic 112–164; BP diastolic 69–86; PULSE 59–90; RESP 16–20; TEMP 36.1–36.8; O2SAT 96–100
--- NOTE | 2023-02-28 06:50 | P.HP_ITS ---
Providers/Chief Complaint Primary Care Provider: Paul Monk Chief Complaint: K80.20 History of Present Illness Dorina Roberts is a 68 year old female Medications/Allergies Home Medications Medication Instructions Recorded Confirmed Last Taken Type garlic 1 mg PO DAILY@0700 07/27/19 02/25/23 02/25/23 History levothyroxine 50 mcg capsule 50 mcg PO DAILY@0500 07/27/19 02/25/23 02/25/23 History venlafaxine 37.5 mg tablet 37.5 mg PO BID 07/08/21 02/25/23 02/25/23 History hydrochlorothiazide 25 mg tablet 25 mg PO DAILY@0700 #90 tabs 08/24/21 02/25/23 02/25/23 Rx lovastatin 40 mg tablet,extended 40 mg PO DAILY@1800 #90 tabs 08/24/21 02/25/23 02/25/23 Rx release 24 hr valsartan 80 mg tablet 80 mg PO DAILY 09/07/21 02/25/23 02/25/23 History potassium chloride 20 mEq 20 meq PO DAILY@0600 #90 tabs 06/04/22 02/25/23 02/25/23 Rx tablet,extended release metformin 500 mg tablet 500 mg PO DAILY 10/20/22 02/25/23 02/25/23 History aspirin 325 mg tablet 81 mg PO DAILY 02/03/23 02/25/23 02/22/23 History gabapentin 300 mg capsule 300 mg PO BID 02/03/23 02/25/23 02/25/23 History Allergies Allergy/AdvReac Type Severity Reaction Status Date / Time atenolol Allergy Itching Verified 02/25/23 09:31 diphenhydramine Allergy Unknown Verified 02/25/23 09:31 [From Benadryl] sulfamethoxazole Allergy Shortness Verified 02/25/23 09:31 [From Bactrim] of breath/wheezing trimethoprim [From Bactrim] Allergy Shortness Verified 02/25/23 09:31 of breath/wheezing PFSH Acute PFSH: Medical History Aftercare following surgery of the genitourinary system The patient status post posterior colporrhaphy 6 weeks ago. Denies any complication. She was counseled regarding no heavy lifting, the use of stool softeners, and diet Chest pain Heart murmur Hypertension Hypokalemia Hypothyroid Hypothyroid Knee pain MVP (mitral valve prolapse) Patient denies medical problems Denies history of:(diabetes, heart, lung, liver, kidney, bleeding problems, clotting problems, or genital herpes) Pelvic floor weakness 62-year-old female , referring that she has to push up vaginal bulge when she goes to the bathroom to have a bowel movement. Patient was counseled regarding physical findings suggestive of stage II rectocele, possible etiologies. She was counseled regarding treatment modalities, medical/conservative expectant management and surgical management. The patient elected to try expectant management first, she was counseled regarding weight loss, Kegel exercise and pelvic floor physical therapy. Patient refers she still having issues and having to push back the vagina every time she goes to the bathroom and she now elected to have surgery. Counseled regarding surgical management. A TVH and BSO with posterior colporrhaphy, sacrospinous ligament suspension had been recommended. However she refers her distance education director only cleared her for the posterior colporrhaphy. The patient was informed of the risks and benefits of an posterior colporrhaphy. Risks included but were not limited to bleeding, infection, and injury to the vagina, bladder, or urethra, and incomplete resolution of symptoms. The patient expressed understanding of the risks involved, all questions were answered, and the patient consented to the procedure and signed informed consent. Peripheral edema Rectocele Surgical History History of hernia repair 1993- Performed at [facility] in [place], [place]. History of tonsillectomy History of vaginal surgery Posterior colporrhaphy 06/06/2019- per Dr. Tomlin at [facility] Family History Father Hypertension Diabetes Heart disease Stroke Hyperlipidemia CAD (coronary artery disease), Onset Age: 70 Sister Hypertension Mother Heart disease Breast cancer CAD (coronary artery disease), Onset Age: 70 Cancer Dementia Family/Other Thyroid condition Heart disease Paternal Aunt Patient denies medical problems Denies family history of: (diabetes, heart, lung, liver, kidney, bleeding problems, clotting problems, or genital herpes) Suicide Stroke Grandmother Stroke Grandfather Stroke Denies family history of Clotting disorder Chronic kidney disease (CKD) Anesthesia complication Bleeding disorder Lung disease Social History Smoking and tobacco status: never smoked Alcohol intake: never Substance/Drug Use: never Additional social history: well balanced diet A&P Assessment and plan (1) Symptomatic cholelithiasis: Plan Laparoscopic cholecystectomy Attestations Medical Necessity Statement*: Home Coding Level of Care Code Acute Code for g Fwd Diagnoses Symptomatic cholelithiasis K80.20
[2023-02-28] MEDS: sodium chloride 0.9% 1,000 ML 30 ML IV (07:25)
[2023-02-28 07:56] LABS: Anion Gap 16.1 (5-19); Blood Urea Nitrogen 27 mg/dL (8-23); Calcium 9.4 mg/dL (8.5-10.5); Carbon Dioxide 27 mmol/L (22-29); Chloride 101 mmol/L (98-107); Glomerular Filtration Rate 99.4 mL/min (90-130); Glucose 130 mg/dL (65-115); Osmolality Calculated 297 mOsm/kg (285-295); Potassium 4.1 mmol/L (3.5-5.1); Sodium 140 mmol/L (136-145)
--- NOTE | 2023-02-28 08:05 | P.ANESASSM_ITS ---
Pre-Anesthetic Assessment Height/Weight: Height 1.63 m Weight 82.554 kg Temp Pulse Resp BP Pulse Ox O2 Del Method 98.2 F 75 16 164/82 98 Room Air 02/28/23 07:13 02/28/23 07:13 02/28/23 07:13 02/28/23 07:13 02/28/23 07:13 02/28/23 07:13 Operation Date: 02/28/23 08:25 Proposed Procedures p [id number] LAP KAREEM K80.20(Not Applicable) - Ankush Lemus DO Familial anesthetic complications: small mouth opneing Was Beta Noam taken within 24 hours: N/A Was Clonidine taken within 24 hours: N/A Last intake: Intake Last Liquid Date 02/27/23 Last Liquid Time 00:00 Last Solid Date 02/27/23 Last Solid Time 00:00 Social No alcohol and No tobacco Exam alert, oriented x 3, clear to auscultation bilaterally and regular rate & rhythm Airway Mallampati: Class III Dentition: other (poor dentition - missing teeth) CV/HEM Hypertension MVP Metabolic Diabetes Mellitus and Thyroid Disease Anesthetic Plan ASA status: 3 Anesthesia: General Risk of > 500 ml blood loss (7ml/kg in children): No Medications/Allergies Home Medications Medication Instructions Recorded Confirmed Last Taken Type garlic 1 mg PO DAILY@0700 07/27/19 02/28/23 02/27/23 History levothyroxine 50 mcg capsule 50 mcg PO DAILY@0500 07/27/19 02/28/23 02/28/23 History venlafaxine 37.5 mg tablet 37.5 mg PO BID 07/08/21 02/28/23 02/27/23 History hydrochlorothiazide 25 mg tablet 25 mg PO DAILY@0700 #90 tabs 08/24/21 02/28/23 02/27/23 Rx lovastatin 40 mg tablet,extended 40 mg PO DAILY@1800 #90 tabs 08/24/21 02/28/23 02/27/23 Rx release 24 hr valsartan 80 mg tablet 80 mg PO DAILY 09/07/21 02/28/23 02/27/23 History potassium chloride 20 mEq 20 meq PO DAILY@0600 #90 tabs 06/04/22 02/28/23 02/27/23 Rx tablet,extended release metformin 500 mg tablet 500 mg PO DAILY 10/20/22 02/28/23 02/27/23 History aspirin 325 mg tablet 81 mg PO DAILY 02/03/23 02/25/23 02/22/23 History gabapentin 300 mg capsule 300 mg PO BID 02/03/23 02/28/23 02/28/23 History Allergies Allergy/AdvReac Type Severity Reaction Status Date / Time atenolol Allergy Itching Verified 02/25/23 09:31 diphenhydramine Allergy Unknown Verified 02/25/23 09:31 [From Benadryl] sulfamethoxazole Allergy Shortness Verified 02/25/23 09:31 [From Bactrim] of breath/wheezing trimethoprim [From Bactrim] Allergy Shortness Verified 02/25/23 09:31 of breath/wheezing Current Medications Generic Name Dose Route Start Last Admin Trade Name Freq PRN Reason Stop Dose Admin Sodium Chloride 1,000 mls @ 30 mls/hr 02/28/23 07:15 02/28/23 07:25 Sodium Chloride 0.9% IV 03/01/23 07:14 30 mls/hr .Q24H JOSE Administration PFSH Anesthesia Medical History Aftercare following surgery of the genitourinary system The patient status post posterior colporrhaphy 6 weeks ago. Denies any complication. She was counseled regarding no heavy lifting, the use of stool softeners, and diet Chest pain Heart murmur Hypertension Hypokalemia Hypothyroid Hypothyroid Knee pain MVP (mitral valve prolapse) Patient denies medical problems Denies history of:(diabetes, heart, lung, liver, kidney, bleeding problems, clotting problems, or genital herpes) Pelvic floor weakness 62-year-old female , referring that she has to push up vaginal bulge when she goes to the bathroom to have a bowel movement. Patient was counseled regarding physical findings suggestive of stage II rectocele, possible etiologies. She was counseled regarding treatment modalities, medical/conservative expectant management and surgical management. The patient elected to try expectant management first, she was counseled regarding weight loss, Kegel exercise and pelvic floor physical therapy. Patient refers she still having issues and having to push back the vagina every time she goes to the bathroom and she now elected to have surgery. Counseled regarding surgical management. A TVH and BSO with posterior colporrhaphy, sacrospinous ligament suspension had been recommended. However she refers her scalp treatment operator only cleared her for the posterior colporrhaphy. The patient was informed of the risks and benefits of an posterior colporrhaphy. Risks included but were not limited to bleeding, infection, and injury to the vagina, bladder, or urethra, and incomplete resolution of symptoms. The patient expressed understanding of the risks involved, all questions were answered, and the patient consented to the procedure and signed informed consent. Peripheral edema Rectocele Surgical History History of hernia repair 1993- Performed at [facility] in [place], [place]. History of tonsillectomy History of vaginal surgery Posterior colporrhaphy 06/06/2019- per Dr. Tomlin at [facility] Family History Father Hypertension Diabetes Heart disease Stroke Hyperlipidemia CAD (coronary artery disease), Onset Age: 70 Sister Hypertension Mother Heart disease Breast cancer CAD (coronary artery disease), Onset Age: 70 Cancer Dementia Family/Other Thyroid condition Heart disease Paternal Aunt Patient denies medical problems Denies family history of: (diabetes, heart, lung, liver, kidney, bleed ing problems, clotting problems, or genital herpes) Suicide Stroke Grandmother Stroke Grandfather Stroke Denies family history of Clotting disorder Chronic kidney disease (CKD) Anesthesia complication Bleeding disorder Lung disease Social History Smoking and tobacco status: never smoked Alcohol intake: never Substance/Drug Use: never Additional social history: well balanced diet Data Anesthesia 02/28/23 07:20 BMP 02/28/23 07:20 Sodium 140 Potassium 4.1 Chloride 101 Carbon Dioxide 27 BUN 27 H Creatinine 0.6 Glucose 130 H Calcium 9.4 Cardiac Studies: Sestamibi Stress Test (Cardiology) 05/26
[2023-02-28] MEDS: ceFAZolin 2,000 MG in sodium chloride 0.9% (plus) 50 ML 100 MG IV (08:08)
[2023-02-28] MEDS: lidocaine-epi 2% 20 mL INJ INJECTION (08:32)
--- NOTE | 2023-02-28 09:45 | ANE.PACU2 ---
Inpatient post-anesthesia follow up: Airway intact: Yes Vital signs: Temperature 97.0 F Pulse Rate 65 Respiratory Rate 16 Blood Pressure 112/71 Pulse Oximetry 96 Oxygen Delivery Me thod Room Air Oxygen Flow Rate 6 Fraction of Inspir ed Oxygen Hydration adequate: Yes Nausea and vomiting: No Pain level: 1 Mental status: Baseline
[2023-02-28] MEDS: HYDROcodone-acetaminophen 10-325 mg Tablet 1 TAB PO (10:07)
--- NOTE | 2023-02-28 16:10 | P.OP_ITS ---
Operative Report Date of procedure: February 28, 2023 Pre-op diagnosis: Symptomatic cholelithiasis Post-op diagnosis: same Procedure done: Laparoscopic cholecystectomy Specimens removed/disposition: Gallbladder Surgeon: Dr. Ankush Lemus DO Anesthesia: General Estimated blood loss (mL): 5 Complications: None apparent Brief History: This is a very pleasant 68-year-old female who was diagnosed with symptomatic cholelithiasis. Laparoscopic cholecystectomy was indicated. The risk and benefits were explained and documented. Procedure: Patient was wheeled into the operative room and placed on the OR table in a supine position. Abdomen was inspected prepped and draped in usual sterile fashion. Time-out was performed and all present were in agreement. A 15 blade scalp was used to make a stab incision in the left upper quadrant and intra- abdominal insufflation was achieved using a Veress needle. After localizing the tissue incisions were made and a 5 millimeter trocar was placed into the umbilicus as well as 2 in the right upper quadrant. A 12 millimeter trocar was placed in the epigastrium. Gallbladder was grasped and elevated. The triangle of Calot was carefully dissected using blunt dissection and electrocautery until the triangle of Calot clearly identified. The cystic duct was clipped pr oximally and double clipped distally. The duct was then ligated proximally. The cystic artery was doubly clipped and ligated. The gallbladder was then removed from the liver bed using electrocautery. The gallbladder was removed from the abdomen using an Endo-Catch bag through the epigastric incision. The liver bed was inspected and no bleeding was seen. The abdomen was irrigated and suctioned . All ports removed. Skin was washed and dried. Incisions were closed with 3- 0 and 4-O Vicryl in a subcuticular interrupted fashion. Skin glue was applied. Patient tolerated the procedure well.
[2023-03-03 05:32] LABS: Glucose Point of Care 117 mg/dL (70-110)
== END 2023-02-28 10:25 | disposition home or self-care (01) ==
PROVIDERS: Anesthesiology; PCP Family Medicine; Visit Provider Surgery
PROC: 0FT44ZZ Resection of Gallbladder, Percutaneous Endoscopic Approach (ICD-10-PCS; CPT 47562; principal; 2023-02-28 08:15)
DX: K80.12 Calculus of gallbladder with acute and chronic cholecystitis without obstruction (principal); E11.9 Type 2 diabetes mellitus without complications; I10 Essential (primary) hypertension; Z79.899 Other long term (current) drug therapy; Z79.84 Long term (current) use of oral hypoglycemic drugs
CPT/HCPCS: 47562; 36415; 36416; 80048; 82962; 88304; J0690; J1100; J2371; J2405; J2704; J2710; J3010; J3490; J7030

== ENCOUNTER → 2023-03-15 09:22 | Outpatient (BNVA) | payer MEDICARE, SELFPAY | PROVIDERS: PCP Family Medicine; Visit Provider Surgery | DX: Z90.49 Acquired absence of other specified parts of digestive tract (principal); Z98.890 Other specified postprocedural states | CPT/HCPCS: 99024 ==

== ENCOUNTER → 2023-09-15 12:56 | Outpatient (BNVA) | payer MEDICARE, SELFPAY | PROVIDERS: PCP Family Medicine; Visit Provider Podiatrist Foot & Ankle Surgery | DX: L60.0 Ingrowing nail (principal); E11.69 Type 2 diabetes mellitus with other specified complication; Z79.84 Long term (current) use of oral hypoglycemic drugs | CPT/HCPCS: 11750; 99203; A6219 ==

== ENCOUNTER → 2023-09-30 09:48 | Outpatient (BNVA) | payer MEDICARE, SELFPAY | PROVIDERS: PCP Family Medicine; Visit Provider Podiatrist Foot & Ankle Surgery | DX: L60.0 Ingrowing nail (principal); E11.9 Type 2 diabetes mellitus without complications; Z79.84 Long term (current) use of oral hypoglycemic drugs | CPT/HCPCS: 99213 ==

== ENCOUNTER → 2024-04-26 14:02 | Outpatient (BNVA) | payer MEDICARE, SELFPAY | PROVIDERS: PCP Family Medicine; Visit Provider Internal Medicine Cardiovascular Disease | DX: I10 Essential (primary) hypertension (principal); I34.1 Nonrheumatic mitral (valve) prolapse; E78.5 Hyperlipidemia, unspecified; E11.9 Type 2 diabetes mellitus without complications; E03.9 Hypothyroidism, unspecified; R25.1 Tremor, unspecified; Z79.84 Long term (current) use of oral hypoglycemic drugs | CPT/HCPCS: 99214 ==

== ENCOUNTER → 2024-08-09 09:45 | Outpatient (BNVA) | payer MEDICARE, SELFPAY | PROVIDERS: PCP Nurse Practitioner Family; Visit Provider Nurse Practitioner Family | DX: I10 Essential (primary) hypertension (principal); E11.9 Type 2 diabetes mellitus without complications | CPT/HCPCS: 80053; 80061; 83036 ==

== ENCOUNTER → 2024-11-01 09:56 | Outpatient (BNVA) | payer MEDICARE, SELFPAY | PROVIDERS: PCP Nurse Practitioner Family; Visit Provider Nurse Practitioner Family | DX: E11.9 Type 2 diabetes mellitus without complications (principal) | CPT/HCPCS: 83036 ==

== ENCOUNTER → 2025-01-08 10:55 | Outpatient (BNVA) | payer MEDICARE, SELFPAY | PROVIDERS: PCP Nurse Practitioner Family; Visit Provider Internal Medicine Cardiovascular Disease | DX: I34.1 Nonrheumatic mitral (valve) prolapse (principal); I10 Essential (primary) hypertension; E78.5 Hyperlipidemia, unspecified; E11.9 Type 2 diabetes mellitus without complications; Z79.84 Long term (current) use of oral hypoglycemic drugs; E03.9 Hypothyroidism, unspecified; R94.31 Abnormal electrocardiogram [ECG] [EKG]; Z79.82 Long term (current) use of aspirin; R07.9 Chest pain, unspecified | CPT/HCPCS: 93005; 99214 ==

== ENCOUNTER → 2025-01-21 08:09 | Outpatient (BNVA) | payer MEDICARE, SELFPAY | PROVIDERS: PCP Nurse Practitioner Family; Visit Provider Nurse Practitioner Family | DX: E11.9 Type 2 diabetes mellitus without complications (principal); E55.9 Vitamin D deficiency, unspecified; I10 Essential (primary) hypertension | CPT/HCPCS: 80053; 82306; 85025 ==

== ENCOUNTER 2025-02-15 11:11 | Outpatient (CLI) | payer MEDICARE, SELFPAY ==
--- NOTE | 2025-02-15 12:00 | USCV_ITS ---
Dorina Roberts Age: 70 Gender: F : 1955 Exam Date: 02/15/2025 12:31 Ordering Phys: Jesse Garcia MD ([email or web address]) Technologist: [email or web address] Exam Location: [facility] – [place] Indication: mvp BP: 150 / 70 HR: 72 Rhythm: Sinus Technical Quality: Suboptimal MEASUREMENTS (Male / Female) Normal Values 2D ECHO LV Diastolic Diameter PLAX 4.6 cm 4.2 - 5.9 / 3.9 - 5.3 cm IVS Diastolic Thickness 0.8 cm 0.6 - 1.0 / 0.6 - 0.9 cm IVS Systolic Thickness 1.6 cm LVPW Diastolic Thickness 0.8 cm 0.6 - 1.0 / 0.6 - 0.9 cm LVPW Systolic Thickness 1.8 cm LVOT Diameter 2.1 cm LV Ejection Fraction 2D Teich 74.6 % LV Ejection Fraction MOD 4C 74.4 % LV Ejection Fraction MOD 2C 76.0 % LV Ejection Fraction 2C AL 77.4 % LA Diameter 3.0 cm RA Systolic Volume 4C AL 25.3 ml RA Systolic Volume 4C MOD 24.6 ml LA Sys Volume AL 30.5 cm cubed LA Sys Volume Index AL 15.4 cm cubed/m squared Aorta at Sinotubular Diameter 1.9 cm IVC Diameter 1.5 cm M-MODE LA Ao Ratio MM 1.1 AV Cusp Separation MM 1.8 cm DOPPLER AV Peak Velocity 127.0 cm/s LVOT Peak Velocity 83.0 cm/s AV Area Cont Eq vti 2.1 cm squared AV Area Cont Eq pk 2.3 cm squared MV Peak Velocity 97.0 cm/s MV Area PHT 3.6 cm squared Mitral E to A Ratio 0.8 TV Peak Velocity 334.7 cm/s TR Peak Velocity 382.0 cm/s TR Peak Gradient 58.4 mmHg TR Mean Velocity 266.0 cm/s TR Mean Gradient 31.7 mmHg TR Velocity Time Integral 86.2 cm PV Peak Velocity 83.3 cm/s RV Ejection Time 0.3 s FINDINGS Left Ventricle Normal left ventricular cavity size and systolic function. Ejection fraction 70%. Normal left ventricular wall thickness. Normal left ventricular diastolic function. Right Ventricle Normal right ventricular size and systolic function. Right Atrium Normal right atrial size Left Atrium Normal left atrial size Mitral Valve Normal structure of the mitral valve. There is no mitral valve prolapse. No mitral valve regurgitation. No mitral valve stenosis Aortic Valve Normal aortic valve structure and function. Tricuspid Valve Trace tricuspid valve regurgitation. Normal pulmonary pressure. Pulmonic Valve Normal structure of the pulmonic valve. Mild pulmonic valve regurgitation. No pulmonic valve stenosis. Pericardium No pericardial effusion. Aorta Normal size of aortic root and ascending aorta. IVC Normal IVC size. CONCLUSIONS 1. Normal left ventricular and right ventricular size and systolic function. LVEF 70% 2. No significant valvular abnormalities. Babatunde Jimenez (Electronically Signed) Final Date: 15 February 2025 15:37 S
== END 2025-02-15 11:12 | disposition home or self-care (01) ==
LOC: RAD 11:15
PROVIDERS: PCP Nurse Practitioner Family; Visit Provider Nurse Practitioner Family
DX: I34.1 Nonrheumatic mitral (valve) prolapse (principal); I37.1 Nonrheumatic pulmonary valve insufficiency
CPT/HCPCS: 93306